=== PATIENT | male | born 1955 | race Caucasian/White ===

== ENCOUNTER 2017-02-14 20:32 | Inpatient (IN) | payer MEDICARE, OTHER ==
[2017-02-14 21:09] LABS: % EOSINOPHILS 1.9 % (0.0-5.0); % LYMPHOCYTES 30.6 % (20.0-50.0); % NEUTROPHILS 60.5 % (40.0-80.0); EOSINOPHILE ABSOLUTE 0.2 Th/cmm (0.1-0.4); HEMATOCRIT 41.2 % (41.0-60); HEMOGLOBIN 13.8 gm/dL (12-16); LYMPHOCYTE ABSOLUTE 3.1 Th/cmm (1.5-3.0); MEAN CELL VOLUME 95.4 fl (80-99); MEAN CORPUSCULAR HEMOGLOBIN 31.9 pg (26.0-30.0); MEAN CORPUSCULAR HGB CONC 33.4 pg (28.0-36.0); MEAN PLATELET VOLUME 7.5 fl; MONOCYTE ABSOLUTE 0.7 Th/cmm (0.3-1.0); NEUTROPHILE ABSOLUTE 6.2 Th/cmm (1.8-8.0); PLATELET COUNT 343 Th/cmm (150-400); RED BLOOD COUNT 4.32 Mil/cmm (4.30-5.70); RED CELL DISTRIBUTION WIDTH 13.5 % (11.5-20.0); WHITE BLOOD COUNT 10.2 Th/cmm (4.8-10.8)
[2017-02-14 21:27] LABS: ALB/GLOB RATIO 1.6 (1.0-1.8); ALBUMIN 4.1 gm/dL (4.2-5.5); ALKALINE PHOSPHATASE 95 U/L (34-104); ANION GAP 5.9 (7.0-16.0); BILIRUBIN,TOTAL 0.5 mg/dL (0.3-1.0); BUN - UREA NITROGEN 19 mg/dL (7-25); CALCIUM SERUM 9.4 mg/dL (8.6-10.3); CARBON DIOXIDE 30.6 mEq/L (21.0-31.0); CHLORIDE 103 mEq/L (98-107); CREATININE - SERUM 0.9 mg/dL (0.7-1.3); GFR AFRICAN-AMERICAN > 60.0 ml/min (>90); GFR NON AFRICAN-AMERICAN > 60.0 ml/min; GLUCOSE 92 mg/dL (70-105); POTASSIUM SERUM 3.5 mEq/L (3.5-5.1); SGOT 17 U/L (13-39); SGPT/ALT 16 U/L (7-52); SODIUM SERUM 136 mEq/L (136-145); TOTAL PROTEIN,SERUM 6.7 gm/dL (6.0-8.3)
--- NOTE | 2017-02-14 21:55 | ED Physician Chart ---
ED Chief Complaint/HPI - Patient Information Date Seen:: 02/14/17 Time Seen:: 21:49 Chief Complaint:: Increased confusion History of Present Illness:: 61 yo male who was a resident at [facility] [place], was brought to the ER for evaluation of increased confusion and uncontrolled behavior. The patient has history of schizoaffective disorder, bipolar type. Allergies:: Allergies Allergy/AdvReac Type Severity Reaction Status Date / Time No Known Allergies Allergy Verified 02/14/17 21:00 Vitals:: Vital Signs - 8 hr 02/14/17 20:40 Temp 97.9 F HR 75 RR 18 BP 131/82 O2 Sat % 98 ED Review of Systems - Review of Systems General/Constitutional: No fever, No chills Skin: Skin lesions Head: No headache Eyes: No loss of vision ENT: No nasal drainage Neck: No neck pain Cardio Vascular: No chest pain Pulmonary: No SOB GI: No nausea, No vomiting Musculoskeletal: No bone or joint pain Neurological: No syncope, Weakness ED Past Medical History - Past Medical History Past Medical History: HTN, Dyslipidemia, Dementia, Other (seborrheic dermatitis , myopia, presbyopia, abnormal gait) Social History: Non Smoker, No Alcohol, No Drug Use Psychiatricy History: Dementia, Other (Schizoaffective disorde, bipolar type) Family Medical History - Family Member Mother History Unknown: Yes ED Physical Exam - Physical Examination General/Constitutional: Awake, Alert Other Gen/Cons comments:: Oriented to self and hospital Head: Atraumatic Eyes: PERRL, EOMI Other Skin comments:: Seborrheic lesions ENMT: Nasal exam nl Neck: No nuchal rigidity Respiratory: Clear to Auscultation, No Wheeze/Rhonchi/Rales Cardio Vascular: RRR, No murmur, gallop, rubs, NL S1 S2 GI: No tenderness/rebounding/guarding Extremities: Full ROM Other Extremities comments:: unsteady gait Neuro/Psych: Normal motor strength ED Labs/Radiology/EKG Results - Lab Results Results: Laboratory Tests 02/14/17 02/14/17 21:02 21:02 WBC 10.2 RBC 4.32 Hgb 13.8 Hct 41.2 MCV 95.4 MCH 31.9 H MCHC Differential 33.4 RDW 13.5 Plt Count 343 MPV 7.5 Neutrophils % 60.5 Lymphocytes % 30.6 Monocytes % 7.0 Eosinophils % 1.9 Basophils % 0.0 Sodium 136 Potassium 3.5 Chloride 103 Carbon Dioxide 30.6 Anion Gap 5.9 L BUN 19 Creatinine 0.9 Est GFR ( Amer) > 60.0 Est GFR (Non-Af Amer) > 60.0 BUN/Creatinine Ratio 21.1 Glucose 92 Calcium 9.4 Total Bilirubin 0.5 AST 17 ALT 16 Alkaline Phosphatase 95 Total Protein 6.7 Albumin 4.1 L Globulin 2.6 Albumin/Globulin Ratio 1.6 - Radiology Results Results: CXR: unremarkable ED Assessment - Assessment General Assessment: Schizoaffective disorder, bipolar type with increased confusion and agitation. Hypertension. Bradycardia Critical Care Time: 30 min Excludes all billable procedures: Yes This condition life threatening/high prob of deterioration: No Assessment/Comments:: CBC, CMP, TSH, A1c UA, urine drug screen EKG Admit to inpatient med surg for further evaluation. ED Septic Shock - . Is Septic Shock (SBP<90, OR Lactate>4 mmol\L) present?: No - <6hrs of presentation: Vital Signs: Vital Signs - 8 hr 02/14/17 20:40 Temp 97.9 F HR 75 RR 18 BP 131/82 O2 Sat % 98 ED Reassessment (Disposition) - Reassessment Reassessment Condition:: Unchanged - Patient Disposition Discharge/Transfer:: Acute Care w/in this hosp Admitting Medical Physician:: Obey Guerra
[2017-02-14] MEDS ORDERED: NITROGLYCERIN OINT 2% 1 INCH PACKET TP SCH ×2 (22:45)
[2017-02-15 00:26] VITALS: BP 110/77
[2017-02-15 06:21] LABS: % BASOPHILS 0.2 % (0.0-2.0); % EOSINOPHILS 1.6 % (0.0-5.0); % LYMPHOCYTES 26.2 % (20.0-50.0); % MONOCYTES 8.3 % (2.0-10.0); % NEUTROPHILS 63.7 % (40.0-80.0); EOSINOPHILE ABSOLUTE 0.2 Th/cmm (0.1-0.4); HEMATOCRIT 39.3 % (41.0-60); HEMOGLOBIN 13.3 gm/dL (12-16); LYMPHOCYTE ABSOLUTE 2.9 Th/cmm (1.5-3.0); MEAN CORPUSCULAR HEMOGLOBIN 31.9 pg (26.0-30.0); MEAN PLATELET VOLUME 7.9 fl; MONOCYTE ABSOLUTE 0.9 Th/cmm (0.3-1.0); NEUTROPHILE ABSOLUTE 6.9 Th/cmm (1.8-8.0); PLATELET COUNT 315 Th/cmm (150-400); RED BLOOD COUNT 4.18 Mil/cmm (4.30-5.70); RED CELL DISTRIBUTION WIDTH 13.7 % (11.5-20.0); WHITE BLOOD COUNT 10.9 Th/cmm (4.8-10.8)
[2017-02-15 06:43] LABS: ALB/GLOB RATIO 1.6 (1.0-1.8); ALBUMIN 3.9 gm/dL (4.2-5.5); ALKALINE PHOSPHATASE 93 U/L (34-104); ANION GAP 9.5 (7.0-16.0); BILIRUBIN,TOTAL 0.3 mg/dL (0.3-1.0); BUN - UREA NITROGEN 23 mg/dL (7-25); CALCIUM SERUM 9.3 mg/dL (8.6-10.3); CARBON DIOXIDE 26.1 mEq/L (21.0-31.0); CHLORIDE 109 mEq/L (98-107); GFR AFRICAN-AMERICAN > 60.0 ml/min (>90); GFR NON AFRICAN-AMERICAN > 60.0 ml/min; GLUCOSE 113 mg/dL (70-105); POTASSIUM SERUM 3.6 mEq/L (3.5-5.1); SGOT 17 U/L (13-39); SGPT/ALT 15 U/L (7-52); SODIUM SERUM 141 mEq/L (136-145); TOTAL PROTEIN,SERUM 6.3 gm/dL (6.0-8.3)
--- NOTE | 2017-02-15 07:11 | Diagnostic Imaging Report ---
Portable chest x-ray Time: 2105 hours History: Pain Allowing for portable technique the heart size is normal. No focal pulmonary parenchymal processes. No hilar or mediastinal abnormalities. Old healed fractures of left rib cage appreciated. Impression: No acute abnormalities.
[2017-02-15] MEDS ORDERED: Atorvastatin Calcium 10 MG TAB PO SCH ×2 (09:00)
[2017-02-15] MEDS ORDERED: [UNRECOGNIZED DRUG - OTHER] TP SCH ×2 (09:00)
[2017-02-15] MEDS ORDERED: FLUOCINOLONE TP SCH ×2 (09:00)
[2017-02-15 16:03] LABS: URINE MICROSCOPIC INDICATED? YES; URINE SOURCE CATH
[2017-02-15 16:10] LABS: URINE BILIRUBIN NEGATIVE (NEGATIVE); URINE BLOOD SMALL (NEGATIVE); URINE GLUCOSE (UA) NEGATIVE (NEGATIVE); URINE KETONE NEGATIVE (NEGATIVE); URINE LEUKOCYTE ESTERASE NEGATIVE (NEGATIVE); URINE NITRATE NEGATIVE (NEGATIVE); URINE PROTEIN NEGATIVE (NEGATIVE); URINE UROBILINOGEN 0.2 E.U./dL (0.2 - 1.0)
[2017-02-15 16:16] LABS: URINE CLARITY CLEAR (CLEAR); URINE COLOR YELLOW
[2017-02-15 16:17] LABS: URINE BACTERIA NONE SEEN /hpf (NONE SEEN); URINE EPITHELIAL CELLS NONE SEEN /lpf (FEW); URINE WBC 0-2 /hpf (0-5)
[2017-02-15 16:43] LABS: AMPHETAMINE URINE NEGATIVE (NEGATIVE); BARBITURATES URINE NEGATIVE (NEGATIVE); BENZODIAZEPINES QUAL URINE NEGATIVE (NEGATIVE); CANNABINOID THC NEGATIVE (NEGATIVE); COCAINE METABOLITE QUAL URINE NEGATIVE (NEGATIVE); METHADONE URINE NEGATIVE (NEGATIVE); METHAMPHETAMINES QUAL URINE NEGATIVE (NEGATIVE); OPIATES (MORPHINE) QUAL. URINE NEGATIVE (NEGATIVE); PHENCYCLIDINE (PCP) URINE NEGATIVE (NEGATIVE); TRICYCLICS (TCA) QUAL. URINE NEGATIVE (NEGATIVE)
--- NOTE | 2017-02-16 07:01 | History & Physical ---
History physical and discharge summary ADMIT DATE: 02/15/2017 HISTORY OF PRESENT ILLNESS: This 61-year-old male was brought to the Emergency Room with complaint of confusion, agitation, and the patient has a history of psychosis, blood pressure was high also, complaining of chest discomfort. The patient was admitted to telemetry and psych evaluation was done. PAST MEDICAL HISTORY: Hypertension, hyperlipidemia, and dementia. SOCIAL HISTORY: Nonsmoker. FAMILY HISTORY: Negative. REVIEW OF SYSTEMS: A 14-point review of systems is negative except above. PHYSICAL EXAMINATION: GENERAL: The patient is very angry with the following vital signs. VITAL SIGNS: Temperature 97.9, pulse 75, respirations 18, blood pressure 131/82. HEENT: Mild pallor, no icterus or plaque. NECK: Supple. LUNGS: Breath sounds, bilateral vesicular. CARDIOVASCULAR: S1, S2. ABDOMEN: Soft, bowel sounds present. LYMPHATICS: No thyromegaly, no cervical lymph nodes. LABORATORY DATA: UA shows small blood, 2-5 RBC and urine toxicology negative. Chemistry shows creatinine of 1. White count is 10,000, hemoglobin 13 grams, platelets are 315. DIAGNOSIS: Angina. PLAN: Check troponin. Cardiology evaluation. Restart home medications including Lipitor, Nitro-Bid, and Zyprexa. The patient has been accepted to [facility], transferred under service of primary physician, Dr. Greg Coulter. JOB# [id number] DELPHINE
--- NOTE | 2017-02-16 17:21 | History & Physical ---
ADMIT DATE: 02/15/2017 INTERNAL MEDICINE CONSULTATION HISTORY OF PRESENT ILLNESS: The patient is a patient of mine, being transferred from medical floor. Medical problems include hyperlipidemia, coronary artery disease, peptic ulcer disease, gastritis, arthritis, and osteoporosis. SOCIAL HISTORY: No prior history of smoking or alcohol abuse. FAMILY HISTORY: Not available. REVIEW OF SYSTEMS: Very confused. Walking all the time. No nausea. No vomiting. No diarrhea. No melena. No hematochezia. PHYSICAL EXAMINATION: GENERAL: Average male in no obvious respiratory distress. VITAL SIGNS: Include a blood pressure 140/80, heart rate 80, and respiratory rate of 18. SKIN: Show no obvious cellulitis. HEENT: Normal conjunctivae. NECK: Supple. LUNGS: Clear. HEART: S1, S2 present. ABDOMEN: Soft. Minimal epigastric tenderness. Bowel sounds appeared good. EXTREMITIES: Show arthritis. NEUROLOGIC: The patient with dementia. MEDICAL DIAGNOSES: Include hyperlipidemia, coronary artery disease, peptic ulcer disease, gastritis, arthritis, and osteoporosis. CURRENT MEDICINES: Include Lipitor 10 mg daily and nitroglycerin p.r.n. Rest of medicines as per psychiatrist. JOB# [id number]
== END 2017-02-15 19:00 | DRG 303 ==
LOC: ER 20:32 → TELE 22:40 → OBSVTOIN 02-15 12:17
PROVIDERS: ADMIT Internal Medicine Infectious Disease; ATTEND Internal Medicine Infectious Disease
DX: I25.119 Atherosclerotic heart disease of native coronary artery with unspecified angina pectoris (principal); F25.0 Schizoaffective disorder, bipolar type; F03.90 Unspecified dementia, unspecified severity, without behavioral disturbance, psychotic disturbance, mood disturbance, and anxiety; K29.70 Gastritis, unspecified, without bleeding; I10 Essential (primary) hypertension; E78.5 Hyperlipidemia, unspecified; R00.1 Bradycardia, unspecified; K27.9 Peptic ulcer, site unspecified, unspecified as acute or chronic, without hemorrhage or perforation; M19.90 Unspecified osteoarthritis, unspecified site; M81.0 Age-related osteoporosis without current pathological fracture
CPT/HCPCS: 36415-UA; 71010-TC; 80053-TC; 80307; 81001-TC; 84443-TC; 84484-TC; 85025-TC; 87086-90; 93005; G0378; Z7502

== ENCOUNTER 2017-02-15 19:04 | Inpatient (IN) | payer MEDICARE, OTHER ==
[2017-02-15 20:12] VITALS: BP 130/64
[2017-02-15] MEDS ORDERED: Magnesium Hydroxide (MOM) 30 mL UDC PO PRN (20:20)
--- NOTE | 2017-02-15 20:56 | Psychosocial Evaluation ---
DATE OF SERVICE: 02/15/2017 REQUESTING PHYSICIAN: Dr. Thomas Guerra. REASON FOR CONSULTATION: Agitated behavior. HISTORY OF PRESENT ILLNESS: This patient is a 61-year-old male admitted from [facility] in view of his aggressive behavior and psychosis. CHIEF COMPLAINT: "I do not know." HISTORY OF PRESENT ILLNESS: This is the first psychiatric hospitalization for this patient at [facility] who is reported to have been out of control at the shelter facility. The patient is being maintained with 20 mg of Zyprexa. Even then, the patient could not be ____. The patient has been screaming and yelling. I tried to interview the patient, but the patient has been getting out of control and the patient has been ordered Haldol 5 mg on a p.r.n. basis for his acute agitation and the patient has not been cooperative at this time. The patient's insight and judgment at this time are very much impaired. Impulse control seems to be poor. PAST PSYCHIATRIC HISTORY: Details are not known. MEDICAL HISTORY: Physical examination is done by Dr. Thomas Guerra. SUBSTANCE ABUSE HISTORY: None. PHYSICAL OR SEXUAL ABUSE HISTORY: None. LEGAL PROBLEMS: None at this time. STRENGTHS AND ASSETS: The patient seems to be poorly motivated. MENTAL EXAMINATION: The patient is a 61-year-old, looking his stated age, superficially cooperative. Eye contact is poor. Mood is noted to be irritable. Affect is constricted. Insight and judgment are noted to be still impaired. Impulse control seems to be poor. Coping skills are also noted to be very poor. The patient has been having difficult time to cope with the stress. The patient is going to be maintained on Ativan and add Haldol on a p.r.n. basis and the patient is going to be closely monitored. The patient is going to be closely monitored. Once stabilized, the patient is going to be discharged. DIAGNOSTIC IMPRESSION: AXIS I: a. Psychosis, not otherwise specified. b. Schizophrenia, chronic, paranoid type. PLAN: To closely monitor the patient with these interventions and transfer the patient to Geropsychiatric Unit when he is medically cleared. JOB# [id number]
[2017-02-15] MEDS ORDERED: Triamcinolone Acetonide 0.1% Cream 15 gm TP SCH (21:00)
[2017-02-15] MEDS: NITROGLYCERIN OINT 2% 1 INCH PACKET TP SCH (21:38)
[2017-02-16] MEDS: NITROGLYCERIN OINT 2% 1 INCH PACKET TP SCH ×3 (05:03→20:53)
[2017-02-16] MEDS ORDERED: KETOCONAZOLE 2% 120 ML SHAMP TP SCH (09:00)
[2017-02-16] MEDS ORDERED: [UNRECOGNIZED DRUG - OTHER] TP SCH (09:00)
[2017-02-16] MEDS ORDERED: FLUOCINOLONE TP SCH (09:00)
[2017-02-16] MEDS: Atorvastatin Calcium 10 MG TAB PO SCH (09:02)
--- NOTE | 2017-02-16 23:22 | Progress Notes ---
DATE: 02/16/2017 IDENTIFYING DATA: The patient is a 61-year-old male, resident of a snf facility. Information obtained by directly interviewing the patient as well as reviewing the admission papers and they are reliable. JUSTIFICATION FOR HOSPITALIZATION: The patient is admitted here on a voluntary basis in view of his acute psychosis. CHIEF COMPLAINT: "I don't know." HISTORY OF PRESENT ILLNESS: This is the first psychiatric hospitalization to [facility]. The patient has been pacing most of the time on the unit and has been getting easily agitated and the patient has to be kept on almost 1:1 observation. Yesterday, the patient has been medicated with Zyprexa. The patient is actively responding to internal stimuli and is not able to provide much of information. PAST PSYCHIATRIC HISTORY: Details are not known. MEDICAL HISTORY: Physical examination is requested to be done by Dr. Coulter. SUBSTANCE ABUSE HISTORY: None. PHYSICAL OR SEXUAL ABUSE HISTORY: None. LEGAL PROBLEMS: None at this time. STRENGTH AND ASSETS: The patient is motivated. MENTAL STATUS EXAMINATION: The patient is a 61-year-old male, looking his stated age, cooperative. The patient has been little bit drowsy with the medication that was given. Insight and judgment at this time are noted to be still impaired. Impulse control, however, seems to be fair today. No side effects to medications are noted. The patient has paranoid delusions. The patient is pacing on the unit most of the time. The patient has no insight into his illness. The patient is alert and oriented x 3. DIAGNOSTIC IMPRESSION: AXIS I: Schizophrenia, chronic paranoid type. AXIS II: None. AXIS III: As per Dr. Coulter. IMMEDIATE TREATMENT PLAN: The patient is going to be observed on the inpatient unit, provided with supportive psychotherapy. The patient is going to be closely monitored. Once stabilized, the patient is going to be discharged to self and will be followed up on an outpatient basis. ESTIMATED LENGTH OF STAY: 5-7 days. DISCHARGE CRITERIA: When he no longer a threat to self or others and be able to cope up with the stress. JOB# [id number]
[2017-02-17] MEDS: NITROGLYCERIN OINT 2% 1 INCH PACKET TP SCH ×3 (04:09→20:44)
[2017-02-17] MEDS: Atorvastatin Calcium 10 MG TAB PO SCH (08:51)
[2017-02-18] MEDS: NITROGLYCERIN OINT 2% 1 INCH PACKET TP SCH ×3 (04:16→20:18)
[2017-02-18] MEDS: Atorvastatin Calcium 10 MG TAB PO SCH (09:13)
--- NOTE | 2017-02-18 10:12 | Progress Notes ---
DATE: 02/17/2017 SUBJECTIVE: Staff was spoken to. The patient is interviewed. The patient is screaming and yelling and has been placed ____. He still tries to get out of the bed. The patient has no insight into his illness. The patient is screaming at the top of his lung. The patient is reported to have been given a dose of Haldol earlier, but it is not containing him. Hence the patient is going to be given a dose of Ativan 1 mg IM. The patient is currently on olanzapine 20 mg at bedtime. In view of his acute mood swings, the patient is going to be placed on the oxcarbazepine 150 mg twice a day and the patient will be followed up with supportive therapy. ASSESSMENT: The patient is grossly psychotic. PLAN: To continue the patient with supportive therapy and followup. JOB# [id number]
--- NOTE | 2017-02-19 01:55 | Progress Notes ---
DATE: 02/18/2017 SUBJECTIVE: Staff was spoken to. The patient is interviewed. Mood is noted to be irritable. Affect is constricted. The patient has been getting easily agitated and has been trying to get out of the wheelchair. The patient has been very impulsive. The patient has been placed on the oxcarbazepine 150 mg twice a day yesterday and is not doing well. The patient is screaming and yelling at the top of his lungs and hence the valproic acid has been added 250 mg twice a day and the patient is also on Haldol 5 mg b.i.d. p.r.n. Even with all the medications, the patient has been having difficult time. ASSESSMENT: The patient is still grossly psychotic and impulsive. PLAN: To continue the patient with the above medications. I encouraged the patient to verbalize the concerns rather than to act out. The patient is not ready to be discharged to a lower level of care yet. JOB# [id number]
[2017-02-19] MEDS: NITROGLYCERIN OINT 2% 1 INCH PACKET TP SCH ×3 (03:58→20:15)
[2017-02-19] MEDS: Atorvastatin Calcium 10 MG TAB PO SCH (09:09)
--- NOTE | 2017-02-19 23:47 | Progress Notes ---
DATE: 02/19/2017 SUBJECTIVE: Staff was spoken to. The patient is interviewed. Mood is noted to be irritable. Affect is constricted. The patient has been in the wheelchair and has been screaming and yelling and trying to get out of the wheelchair. The patient has no insight into his illness continues to be very paranoid. The patient is not making much sense. PLAN: The patient has been currently maintained on Zyprexa, Depakote and Trileptal. Even with these medications, the patient has been having difficult time to comply with the treatment. JOB# [id number]
[2017-02-20] MEDS: NITROGLYCERIN OINT 2% 1 INCH PACKET TP SCH ×3 (04:45→20:30)
[2017-02-20] MEDS: Atorvastatin Calcium 10 MG TAB PO SCH (09:04)
--- NOTE | 2017-02-20 20:57 | Progress Notes ---
DATE: 02/20/2017 Staff was spoken to. The patient is interviewed. Mood is noted to be irritable. Affect is constricted. Insight and judgment are noted to be still impaired. The patient is currently on olanzapine 20 mg at bedtime. Oxcarbazepine is given 150 mg twice a day and valproic acid 250 mg twice a day. Even with these medications, the patient has been getting easily agitated, trying to get out of the wheelchair. The patient has no insight into his illness. The patient is going to be placed on a higher dose on the Trileptal and encouraged to participate in groups and ____ rather than to act out. JOB# [id number]
[2017-02-21] MEDS: Atorvastatin Calcium 10 MG TAB PO SCH (08:24)
[2017-02-21] MEDS: NITROGLYCERIN OINT 2% 1 INCH PACKET TP SCH ×2 (12:09→20:52)
--- NOTE | 2017-02-21 20:37 | Progress Notes ---
DATE: 02/21/2017 SUBJECTIVE: Staff was spoken to. The patient is interviewed. Mood is irritable. Affect is constricted. The patient is still on the valproic acid, oxcarbazepine and olanzapine. Still he is testing the limits. No side effects to the medications are noted. The patient is very disruptive and has to be redirected. No side effects to the medications are noted at this time. ASSESSMENT: The patient is still psychotic and impulsive. PLAN: To continue the patient with the supportive therapy. I encouraged the patient to verbalize the concerns rather than to act out. JOB# [id number]
[2017-02-22] MEDS: NITROGLYCERIN OINT 2% 1 INCH PACKET TP SCH ×4 (04:00→21:25)
--- NOTE | 2017-02-22 09:52 | Progress Notes ---
DATE: 02/22/2017 PSYCHIATRIC PROGRESS NOTE SUBJECTIVE: Staff was spoken to. The patient is interviewed. Mood is noted to be irritable. Affect is constricted. The patient is reported to have been screaming and yelling last night and the patient has to be given a dose of Ativan to calm him down. The patient's mood swings are still a concern. The patient is trying to get out of the ____ and the patient is a high fall risk. ASSESSMENT: The patient is still having mood swings. PLAN: To continue the patient with the supportive therapy. I encouraged the patient to verbalize the concerns. The patient is going to be closely monitored and the Depakote is going to be increased to 500 mg twice a day and the patient is going to be followed up. JOB# [id number]
[2017-02-22] MEDS: Atorvastatin Calcium 10 MG TAB PO SCH (11:08)
[2017-02-23] MEDS: NITROGLYCERIN OINT 2% 1 INCH PACKET TP SCH ×2 (05:07→11:38)
[2017-02-23] MEDS: Atorvastatin Calcium 10 MG TAB PO SCH ×3 (08:33→09:18)
--- NOTE | 2017-02-23 20:03 | Progress Notes ---
DATE: 02/23/2017 SUBJECTIVE: Staff was spoken to. The patient is interviewed. Mood is noted to be irritable. Affect is constricted. The patient is still having difficult time to cope with the stress. The patient's insight and judgment at this time are noted to be still limited. The patient has been requested to have the blood work for the Depakote level and it is still pending. ASSESSMENT: The patient is still psychotic, tends to scream and yell. PLAN: To continue the patient with the supportive therapy. I encouraged the patient to verbalize the concerns rather than to act out. JOB# [id number]
== END 2017-02-23 15:15 | DRG 885 ==
LOC: GERO 19:04
PROVIDERS: ADMIT Psychiatry & Neurology Psychiatry; ATTEND Psychiatry & Neurology Psychiatry
DX: F20.0 Paranoid schizophrenia (principal); F29 Unspecified psychosis not due to a substance or known physiological condition; E78.5 Hyperlipidemia, unspecified; I25.10 Atherosclerotic heart disease of native coronary artery without angina pectoris; K29.70 Gastritis, unspecified, without bleeding; M19.90 Unspecified osteoarthritis, unspecified site; M81.0 Age-related osteoporosis without current pathological fracture
CPT/HCPCS: J2060; J7051; Z7610

== ENCOUNTER 2017-11-15 17:32 | Inpatient (IN) | payer MEDICARE, OTHER ==
--- NOTE | 2017-11-15 17:39 | ED Physician Chart ---
ED Chief Complaint/HPI - Patient Information Date Seen:: 11/15/17 Time Seen:: 17:25 Chief Complaint:: Agitation History of Present Illness:: onset x 3 days of agitation and confusion; no report of trauma, SIs, H/As, neck pain, C/P, SOB, Abd. Pain, A/N/V/D/C, fever, chills, or urinary s/s Allergies:: Allergies Allergy/AdvReac Type Severity Reaction Status Date / Time No Known Allergies Allergy Verified 02/14/17 21:00 Historian:: Patient, EMS Review:: Nurse's Note Reviewed, Old Chart Reviewed, EMS run form Reviewed ED Review of Systems - Review of Systems General/Constitutional: No fever, No chills, No weight loss, No weakness, No diaphoresis, No edema, No loss of appetite Skin: No skin lesions, No rash, No bruising Head: No headache, No light-headedness Eyes: No loss of vision, No pain, No diplopia ENT: No earache, No nasal drainage, No sore throat, No tinnitus Neck: No neck pain, No swelling, No thyromegaly, No stiffness, No mass noted Cardio Vascular: No chest pain, No palpitations, No PND, No orthopnea, No edema Pulmonary: No SOB, No cough, No sputum, No wheezing GI: No nausea, No vomiting, No diarrhea, No pain, No melena, No hematochezia, No constipation, No hematemesis G/U: No dysuria, No frequency, No hematuria, No nacturia Musculoskeletal: No bone or joint pain, No back pain, No muscle pain Endocrine: No polyuria, No polydipsia Psychiatric: Prior psych history, Depression, Anxiety, No suicidal ideation, No homicidal ideation, No auditory hallucination, No visual hallucination Hematopoietic: No bruising, No lymphadenopathy Allergic/Immuno: No urticaria, No angioedema Neurological: No syncope, No focal symptoms, No weakness, No paresthesia, No headache, No seizure, No dizziness, Confusion, No vertigo ED Past Medical History - Past Medical History Obtainable: Yes Past Medical History: HTN, Dyslipidemia, Dementia Family History: HTN Social History: Non Smoker, No Alcohol, No Drug Use, Single, Care Facility Surgical History: None Psychiatricy History: Depression, Schizophrenia, Bipolar, Dementia Medication: Reviewed Family Medical History - Family Member Mother History Unknown: Yes ED Physical Exam - Physical Examination General/Constitutional: Awake, Well-developed, well-nourished, Alert, No distress, GCS 15, Non-toxic appearing, Ambulatory Head: Atraumatic Eyes: Lids, conjuctiva normal, PERRL, EOMI Skin: Nl inspection, No rash, No skin lesions, No ecchymosis, Well hydrated, No lymphadenopathy ENMT: External ears, nose nl, TM canals nl, Nasal exam nl, Lips, teeth, gums nl , Oropharynx nl, Tonsils nl Neck: Nontender, Full ROM w/o pain, No JVD, No nuchal rigidity, No bruit, No mass, No stridor Respiratory: Nl effort/Exclusion, Clear to Auscultation, No Wheeze/Rhonchi/Rales Cardio Vascular: RRR, No murmur, gallop, rubs, NL S1 S2, Carotid/Femoral/Distal pulses equal bilaterally GI: No tenderness/rebounding/guarding, No organomegaly, No hernia, Normal BS's, Nondistended, No mass/bruits, No McBurney tenderness : No CVA tenderness Extremities: No tenderness or effusion, Full ROM, normal strength in all extremities, No edema, Normal digits & nails Neuro/Psych: Alert/oriented, DTR's symmetric, Normal sensory exam, Normal motor strength, Judgement/insight normal, Mood normal, Normal gait, No focal deficits Other Neuro/Psych comments:: + Psychomotor Agitation; no SIs; Mood/Affect: Labile; Confused and Disoriented Misc: Normal back, No paraspinal tenderness ED Labs/Radiology/EKG Results - Lab Results Comments:: Reviewed - EKG Interpretations EKG Time:: 17:44 Rate & Rhythm: 79; NSR Comments:: non-specific st-t changes ED Septic Shock - . Is Septic Shock (SBP<90, OR Lactate>4 mmol\L) present?: No ED Reassessment (Disposition) - Reassessment Reassessment Condition:: Improved - Diagnosis Diagnosis:: Dx: Agitation; Psychosis; Medical Clearance; Dementia; Schizo-Affective Disorder ; Bipolar Disorder - Aftercare/Follow up Instructions Aftercare/Follow-Up Instructions:: Counseled pt regarding lab results/diagnosis & need follow up, Counseled pt & family regarding lab results/diagnosis & need follow up - Patient Disposition Discharge/Transfer:: Acute Care w/in this hosp Admitted to:: [facility] Condition at Disposition:: Stable, Improved
[2017-11-15 17:48] LABS: % BASOPHILS 0.5 % (0.0-2.0); % EOSINOPHILS 1.3 % (0.0-5.0); % LYMPHOCYTES 27.4 % (20.0-50.0); % MONOCYTES 8.5 % (2.0-10.0); % NEUTROPHILS 62.3 % (40.0-80.0); BASOPHILE ABSOLUTE 0.1 Th/cumm (0-0.2); EOSINOPHILE ABSOLUTE 0.2 Th/cmm (0.1-0.4); LYMPHOCYTE ABSOLUTE 3.3 Th/cmm (1.5-3.0); MEAN CELL VOLUME 93.8 fl (80-99); MEAN CORPUSCULAR HEMOGLOBIN 31.2 pg (26.0-30.0); MEAN CORPUSCULAR HGB CONC 33.3 pg (28.0-36.0); MEAN PLATELET VOLUME 7.8 fl; NEUTROPHILE ABSOLUTE 7.3 Th/cmm (1.8-8.0); PLATELET COUNT 392 Th/cmm (150-400); RED CELL DISTRIBUTION WIDTH 13.7 % (11.5-20.0); WHITE BLOOD COUNT 11.9 Th/cmm (4.8-10.8)
[2017-11-15 18:05] LABS: ACETAMINOPHEN < 10.0 ug/mL (10.0-30.0); ALB/GLOB RATIO 1.5 (1.0-1.8); ALBUMIN 4.1 gm/dL (4.2-5.5); ALKALINE PHOSPHATASE 47 U/L (34-104); ANION GAP 13.2 (7.0-16.0); BILIRUBIN,TOTAL 0.4 mg/dL (0.3-1.0); BUN - UREA NITROGEN 19 mg/dL (7-25); CALCIUM SERUM 9.1 mg/dL (8.6-10.3); CARBON DIOXIDE 23.9 mEq/L (21.0-31.0); CHLORIDE 105 mEq/L (98-107); CHOLESTEROL 171 mg/dL (<200); CREATININE - SERUM 1.1 mg/dL (0.7-1.3); GFR AFRICAN-AMERICAN > 60.0 ml/min (>90); GFR NON AFRICAN-AMERICAN > 60.0 ml/min; GLUCOSE 122 mg/dL (70-105); HDL -HIGH DENSITY LIPOPROTEIN 40 mg/dL (23-92); POTASSIUM SERUM 4.1 mEq/L (3.5-5.1); SALICYLATES (ASPIRIN) < 25.0 mg/L (30.0-100.0); SGOT 14 U/L (13-39); SGPT/ALT 16 U/L (7-52); SODIUM SERUM 138 mEq/L (136-145); TOTAL PROTEIN,SERUM 6.9 gm/dL (6.0-8.3); TRIGLYCERIDES 182 mg/dL (<150)
[2017-11-15 18:28] LABS: URINE SOURCE CLEAN C
[2017-11-15 18:33] LABS: URINE BILIRUBIN NEGATIVE (NEGATIVE); URINE BLOOD SMALL (NEGATIVE); URINE GLUCOSE (UA) NEGATIVE (NEGATIVE); URINE KETONE NEGATIVE (NEGATIVE); URINE LEUKOCYTE ESTERASE NEGATIVE (NEGATIVE); URINE MICROSCOPIC INDICATED? YES; URINE NITRATE NEGATIVE (NEGATIVE); URINE PROTEIN NEGATIVE (NEGATIVE); URINE UROBILINOGEN 0.2 E.U./dL (0.2 - 1.0)
[2017-11-15 18:35] LABS: URINE CLARITY CLEAR (CLEAR); URINE COLOR YELLOW
[2017-11-15 18:37] LABS: URINE BACTERIA FEW /hpf (NONE SEEN); URINE EPITHELIAL CELLS FEW /lpf (FEW); URINE WBC 0-2 /hpf (0-5)
[2017-11-15 18:50] LABS: AMPHETAMINE URINE NEGATIVE (NEGATIVE); BARBITURATES URINE NEGATIVE (NEGATIVE); BENZODIAZEPINES QUAL URINE NEGATIVE (NEGATIVE); CANNABINOID THC NEGATIVE (NEGATIVE); COCAINE METABOLITE QUAL URINE NEGATIVE (NEGATIVE); METHADONE URINE NEGATIVE (NEGATIVE); METHAMPHETAMINES QUAL URINE NEGATIVE (NEGATIVE); OPIATES (MORPHINE) QUAL. URINE NEGATIVE (NEGATIVE); PHENCYCLIDINE (PCP) URINE NEGATIVE (NEGATIVE); TRICYCLICS (TCA) QUAL. URINE NEGATIVE (NEGATIVE)
[2017-11-15 18:54] LABS: A1C % 6.2 % (4.0-6.0)
[2017-11-15 20:46] VITALS: BP 118/74
[2017-11-15] MEDS ORDERED: Magnesium Hydroxide (MOM) 30 mL UDC PO PRN ×2 (20:56→20:59)
[2017-11-15] MEDS ORDERED: Maalox 30 mL Cup PO PRN (20:56)
[2017-11-15] MEDS: Atorvastatin Calcium 10 MG TAB PO SCH (22:44)
[2017-11-16] MEDS ORDERED: Non-Formulary Item 1 EA (Valproic Acid [Depakene] 250 MG) PO SCH (09:00)
--- NOTE | 2017-11-16 19:49 | History and Physical ---
History of Present Illness - HPI Chief Complaint: Increased in agitation HPI: Patient has been agitated x 3 days, he was send to ER for Evaluation. 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: Dementia GI: Report: No Pertinent Hx Psych: Report: Schizophrenia Musculoskeletal: Report: No Pertinent Hx Rheumatologic: Report: No pertinent Hx Infectious Disease: Report: No Pertinent Hx Renal/: Report: No Pertinent Hx Endocrine: Report: No Pertinent Hx Dermatology: Report: No Pertinent Hx - Past Surgical History Past Surgical History: No pertinent Hx Family Medical History - Family Member Mother History Unknown: Yes Social History Smoke: No Alcohol: None Drugs: None Lives: Care Home Domestic Violence: Negative - Medications Home Medications: Home Medication Medication Instructions Recorded Type Acetaminophen 650 mg PO DAILY PRN 11/15/17 History Atorvastatin Calcium [Lipitor] 10 mg PO HS 11/15/17 History Clonazepam 0.5 mg PO BID PRN 11/15/17 History Magnesium Hydroxide [Milk of 30 ml PO DAILY PRN 11/15/17 History Magnesia] Olanzapine [Zyprexa Zydis] 10 mg PO HS 11/15/17 History Oxcarbazepine 300 mg PO BID 11/15/17 History Valproic Acid [Depakene] 250 mg PO DAILY 11/15/17 History Valproic Acid [Depakene] 500 mg PO HS 11/15/17 History - Allergies Allergies/Adverse Reactions: Allergies Allergy/AdvReac Type Severity Reaction Status Date / Time No Known Allergies Allergy Verified 11/15/17 17:44 Review of Systems - Review of Systems Constitutional: Report: No Significant Eyes: Report: No Significant ENT: Report: No Significant Respiratory: Report: No Significant Cardiovascular: Report: No Significant Gastrointestinal: Report: No Significant Genitourinary: Report: No Significant Musculoskeletal: Report: No Significant Skin: Report: No Significant Neurological: Report: Weakness Physical Exam - Physical Exam HEENT: Report: Ears Nose Throat within normal limits Neck: Report: Within normal limits Cardiovascular Systems: Report: Regular, Rate and Rhythm Respiratory: Report: Breath Sounds are within normal limits Abdomen: Report: Non-tender to palpation Back: Report: Inspection of back is within normal limits. Extremities: Report: Non-tender to palpation. Skin: Report: Warm, Dry Neuro/Psych: Report: Disoriented to name time or place, Depressed affect - Lab Results All Lab Results last 24 hours: Laboratory Results - last 24 hr 11/15/17 17:40 RPR NONREACTIVE - Assessment Assessment: Patient is awake, alert in no acute distress. Dx Increased in agitation, Dementia, schizophrenia, hyperlipidemia - Plan Plan: Patient is under psychiatric care. She is continue with SNF meds.
--- NOTE | 2017-11-16 20:17 | Psychiatric Evaluation ---
DATE OF SERVICE: 11/15/2017 IDENTIFYING DATA: The patient is a 61-year-old male, resident of [facility]. Information obtained by directly interviewing the patient as well as reviewing the admission papers and they are reliable. JUSTIFICATION FOR HOSPITALIZATION: The patient has been admitted over here for acute agitation and aggressive behaviors towards the staff. Chart is reviewed. The patient is interviewed: Staff was spoken to get an evaluation, the patient has been very isolative, withdrawn and very guarded and is not providing much of information stating that he does not know for most of the questions. Review of the chart indicated that the patient had been maintained on both the Trileptal as well as on the Depakote for his mood swings and the patient is also reported to have been on antihypertensive medications along with olanzapine at bedtime and the patient at this time is very guarded and suspicious. The patient's sleep and appetite prior to the hospitalization are reported to be poor. PAST PSYCHIATRIC HISTORY: Details are not known. MEDICAL HISTORY: Physical examination is requested to be done by Dr. Bhatia. SUBSTANCE ABUSE HISTORY: None. PHYSICAL OR SEXUAL ABUSE HISTORY: None. LEGAL PROBLEMS: None at this time. STRENGTH AND ASSETS: The patient is motivated. MENTAL STATUS EXAMINATION: The patient is a 61-year-old, looking his stated age, disheveled, superficially cooperative. Eye contact is poor. Mood is noted to be irritable. Affect is constricted. The patient has paranoid delusions, but denies any command hallucinations. Insight and judgment at this time are noted to be very much impaired. Impulse control is noted to be limited. The patient has been having difficult time to cope with the stress. The patient is paranoid, but denies any command hallucinations. The patient is reported to have been striking out at other residents and the staff. The patient could not be contained at a lower level of care. The patient is not suicidal. DIAGNOSTIC IMPRESSION: AXIS I: Schizoaffective disorder by history. AXIS II: None. AXIS III: As per Dr. Bhatia. IMMEDIATE TREATMENT PLAN: The patient is going to be observed on inpatient unit, provided with supportive psychotherapy. The patient is going to be closely monitored. Once stabilized, the patient is going to be discharged to [facility] for further followup. JOB# [id number]
[2017-11-16] MEDS: OLANZapine 10 mg Oral Disintegrating Tab PO SCH (20:45)
[2017-11-16] MEDS: Atorvastatin Calcium 10 MG TAB PO SCH (20:45)
--- NOTE | 2017-11-17 09:15 | General Progress Note ---
Subjective - Review of Systems Service Date: 11/17/17 Subjective: Patient is confused Objective - Results Result Diagrams: 11/15/17 17:40 11/15/17 17:40 Recent Labs: Laboratory Last Values WBC 11.9 Th/cmm (4.8-10.8) H 11/15/17 17:40 RBC 4.80 Mil/cmm (4.30-5.70) 11/15/17 17:40 Hgb 15.0 gm/dL (12-16) 11/15/17 17:40 Hct 45.0 % (41.0-60) 11/15/17 17:40 MCV 93.8 fl (80-99) 11/15/17 17:40 MCH 31.2 pg (26.0-30.0) H 11/15/17 17:40 MCHC Differential 33.3 pg (28.0-36.0) 11/15/17 17:40 RDW 13.7 % (11.5-20.0) 11/15/17 17:40 Plt Count 392 Th/cmm (150-400) 11/15/17 17:40 MPV 7.8 fl 11/15/17 17:40 Neutrophils % 62.3 % (40.0-80.0) 11/15/17 17:40 Lymphocytes % 27.4 % (20.0-50.0) 11/15/17 17:40 Monocytes % 8.5 % (2.0-10.0) 11/15/17 17:40 Eosinophils % 1.3 % (0.0-5.0) 11/15/17 17:40 Basophils % 0.5 % (0.0-2.0) 11/15/17 17:40 Sodium 138 mEq/L (136-145) 11/15/17 17:40 Potassium 4.1 mEq/L (3.5-5.1) 11/15/17 17:40 Chloride 105 mEq/L (98-107) 11/15/17 17:40 Carbon Dioxide 23.9 mEq/L (21.0-31.0) 11/15/17 17:40 Anion Gap 13.2 (7.0-16.0) 11/15/17 17:40 BUN 19 mg/dL (7-25) 11/15/17 17:40 Creatinine 1.1 mg/dL (0.7-1.3) 11/15/17 17:40 Est GFR ( Amer) > 60.0 ml/min (>90) 11/15/17 17:40 Est GFR (Non-Af Amer) > 60.0 ml/min 11/15/17 17:40 BUN/Creatinine Ratio 17.3 11/15/17 17:40 Glucose 122 mg/dL (70-105) H 11/15/17 17:40 Hemoglobin A1c % 6.2 % (4.0-6.0) H 11/15/17 17:40 Calcium 9.1 mg/dL (8.6-10.3) 11/15/17 17:40 Total Bilirubin 0.4 mg/dL (0.3-1.0) 11/15/17 17:40 AST 14 U/L (13-39) 11/15/17 17:40 ALT 16 U/L (7-52) 11/15/17 17:40 Alkaline Phosphatase 47 U/L (34-104) 11/15/17 17:40 Troponin I < 0.01 ng/mL (0.01-0.05) L 11/15/17 17:40 Total Protein 6.9 gm/dL (6.0-8.3) 11/15/17 17:40 Albumin 4.1 gm/dL (4.2-5.5) L 11/15/17 17:40 Globulin 2.8 gm/dL 11/15/17 17:40 Albumin/Globulin Ratio 1.5 (1.0-1.8) 11/15/17 17:40 Triglycerides 182 mg/dL (<150) H 11/15/17 17:40 Cholesterol 171 mg/dL (<200) 11/15/17 17:40 LDL Cholesterol Direct 92 mg/dL (75-193) 11/15/17 17:40 HDL Cholesterol 40 mg/dL (23-92) 11/15/17 17:40 TSH 1.84 uIU/ml (0.34-5.60) 11/15/17 17:40 Urine Source CLEAN C 11/15/17 18:15 Urine Color YELLOW 11/15/17 18:15 Urine Clarity CLEAR (CLEAR) 11/15/17 18:15 Urine pH 6.0 (4.6 - 8.0) 11/15/17 18:15 Ur Specific [place] 1.020 (1.005-1.030) 11/15/17 18:15 Urine Protein NEGATIVE mg/dL (NEGATIVE) 11/15/17 18:15 Urine Glucose (UA) NEGATIVE mg/dL (NEGATIVE) 11/15/17 18:15 Urine Ketones NEGATIVE mg/dL (NEGATIVE) 11/15/17 18:15 Urine Blood SMALL (NEGATIVE) H 11/15/17 18:15 Urine Nitrate NEGATIVE (NEGATIVE) 11/15/17 18:15 Urine Bilirubin NEGATIVE (NEGATIVE) 11/15/17 18:15 Urine Urobilinogen 0.2 E.U./dL (0.2 - 1.0) 11/15/17 18:15 Ur Leukocyte Esterase NEGATIVE (NEGATIVE) 11/15/17 18:15 Urine RBC 2-5 /hpf (0-5) H 11/15/17 18:15 Urine WBC 0-2 /hpf (0-5) 11/15/17 18:15 Ur Epithelial Cells FEW /lpf (FEW) 11/15/17 18:15 Urine Bacteria FEW /hpf (NONE SEEN) 11/15/17 18:15 Salicylates < 25.0 mg/L (30.0-100.0) L 11/15/17 17:40 Urine Opiates Screen NEGATIVE (NEGATIVE) 11/15/17 18:15 Urine Methadone Screen NEGATIVE (NEGATIVE) 11/15/17 18:15 Acetaminophen < 10.0 ug/mL (10.0-30.0) L 11/15/17 17:40 Ur Barbiturates Screen NEGATIVE (NEGATIVE) 11/15/17 18:15 Ur Tricyclics Screen NEGATIVE (NEGATIVE) 11/15/17 18:15 Ur Phencyclidine Scrn NEGATIVE (NEGATIVE) 11/15/17 18:15 Amphetamines Screen NEGATIVE (NEGATIVE) 11/15/17 18:15 U Methamphetamines Scrn NEGATIVE (NEGATIVE) 11/15/17 18:15 U Benzodiazepines Scrn NEGATIVE (NEGATIVE) 11/15/17 18:15 U Cocaine Metab Screen NEGATIVE (NEGATIVE) 11/15/17 18:15 U Cannabinoids Screen NEGATIVE (NEGATIVE) 11/15/17 18:15 Ethyl Alcohol < 10 mg/dL (0-10) 11/15/17 17:40 RPR NONREACTIVE (NONREACTIVE) 11/15/17 17:40 - Physical Exam Vitals and I&O: Vital Signs Temp 98.4 F 11/17/17 06:35 Pulse 70 11/17/17 06:35 Resp 20 11/17/17 06:35 BP 104/64 11/17/17 06:35 Pulse Ox 97 11/17/17 06:35 Intake & Output 11/16/17 11/17/17 11/17/17 18:59 06:59 18:59 Intake Total 1120 Balance 1120 Intake: Oral 1120 Other: # Voids 2 # Bowel Movements 1 Active Medications: Current Medications Acetaminophen (Tylenol) 650 mg PO Q4HR PRN PRN Reason: Mild Pain / Temp above 100 Stop: 01/14/18 20:58 Al Hydrox/Mg Hydrox/Simethicone (Maalox) 30 ml PO Q4HR PRN PRN Reason: GI DISTRESS Stop: 01/14/18 20:55 Atorvastatin Calcium (Lipitor) 10 mg PO HS [facility]; Protocol Stop: 01/14/18 20:59 Last Admin: 11/16/17 20:45 Dose: 10 mg Clonazepam (Klonopin) 0.5 mg PO BID PRN; Protocol PRN Reason: Anxiety Stop: 01/14/18 20:47 Last Admin: 11/16/17 11:22 Dose: 0.5 mg Divalproex Sodium (Depakote Sprinkle) 500 mg PO HS [facility] Stop: 01/14/18 22:59 Last Admin: 11/16/17 20:45 Dose: 500 mg Divalproex Sodium (Depakote Dr) 250 mg PO DAILY [facility] Stop: 01/15/18 08:59 Last Admin: 11/17/17 09:04 Dose: 250 mg Magnesium Hydroxide (Milk Of Magnesia) 30 ml PO HS PRN PRN Reason: Constipation Olanzapine (Zyprexa Zydis) 10 mg PO HS [facility]; Protocol Stop: 01/14/18 20:59 Last Admin: 11/16/17 20:45 Dose: 10 mg Oxcarbazepine (Trileptal) 300 mg PO BID [facility]; Protocol Stop: 01/15/18 08:59 Last Admin: 11/17/17 09:05 Dose: 300 mg Zolpidem Tartrate (Ambien) 5 mg PO HS PRN PRN Reason: Insomnia Stop: 01/14/18 20:55 Last Admin: 11/16/17 20:47 Dose: 5 mg General: Alert, Other (Confused) HEENT: Atraumatic Neck: Supple Cardiovascular: Regular rate Lungs: Clear to auscultation Abdomen: Bowel sounds, Soft Extremities: Other (No edema) Neurological: Normal gait Psych/Mental Status: Other (Confused not oriented. ) Assessment/Plan - Assessment Assessment: Patient is awake, alert in no acute distress. Dx Increased in agitation, Dementia, schizophrenia, hyperlipidemia - Plan Plan: Patient is under psychiatric care. She is continue with SNF meds. CBC is requested. Will continue to monitor.
[2017-11-17] MEDS ORDERED: Haloperidol Lactate 5 mg/mL 1mL Vial ONE (16:42)
[2017-11-17] MEDS ORDERED: Haloperidol Lactate 5 mg/mL 1mL Vial IM STA (16:43)
[2017-11-17] MEDS: OLANZapine 10 mg Oral Disintegrating Tab PO SCH (21:05)
[2017-11-17] MEDS: Atorvastatin Calcium 10 MG TAB PO SCH (21:05)
--- NOTE | 2017-11-18 03:14 | Progress Notes ---
DATE: 11/17/2017 SUBJECTIVE: Staff was spoken to. The patient is interviewed. Mood is noted to be irritable. Affect is constricted. The patient's coping skills are noted to be very poor. The patient is still testing the limits. The patient has no insight into his illness. The patient has to be given a dose of the Haldol, Benadryl and Ativan to calm him down. ASSESSMENT: The patient is still psychotic and impulsive. PLAN: To continue the patient with the supportive therapy, we encouraged the patient to verbalize the concerns rather than to act out. Please note that the patient is not ready to be discharged to a lower level of care yet. JOB# [id number]
[2017-11-18 07:26] LABS: % BASOPHILS 0.6 % (0.0-2.0); % EOSINOPHILS 1.5 % (0.0-5.0); % LYMPHOCYTES 27.9 % (20.0-50.0); % MONOCYTES 8.7 % (2.0-10.0); % NEUTROPHILS 61.3 % (40.0-80.0); BASOPHILE ABSOLUTE 0.1 Th/cumm (0-0.2); EOSINOPHILE ABSOLUTE 0.2 Th/cmm (0.1-0.4); HEMATOCRIT 42.4 % (41.0-60); LYMPHOCYTE ABSOLUTE 3.1 Th/cmm (1.5-3.0); MEAN CELL VOLUME 94.3 fl (80-99); MEAN CORPUSCULAR HEMOGLOBIN 31.2 pg (26.0-30.0); MEAN CORPUSCULAR HGB CONC 33.1 pg (28.0-36.0); MEAN PLATELET VOLUME 8.3 fl; NEUTROPHILE ABSOLUTE 6.7 Th/cmm (1.8-8.0); PLATELET COUNT 373 Th/cmm (150-400); RED BLOOD COUNT 4.49 Mil/cmm (4.30-5.70); RED CELL DISTRIBUTION WIDTH 13.7 % (11.5-20.0); WHITE BLOOD COUNT 11.1 Th/cmm (4.8-10.8)
[2017-11-18 07:42] LABS: ALB/GLOB RATIO 1.3 (1.0-1.8); ALBUMIN 3.8 gm/dL (4.2-5.5); ALKALINE PHOSPHATASE 38 U/L (34-104); BILIRUBIN,TOTAL 0.3 mg/dL (0.3-1.0); BUN - UREA NITROGEN 22 mg/dL (7-25); CALCIUM SERUM 8.9 mg/dL (8.6-10.3); CHLORIDE 110 mEq/L (98-107); GFR AFRICAN-AMERICAN > 60.0 ml/min (>90); GFR NON AFRICAN-AMERICAN > 60.0 ml/min; GLUCOSE 86 mg/dL (70-105); SGOT 21 U/L (13-39); SGPT/ALT 15 U/L (7-52); SODIUM SERUM 142 mEq/L (136-145); TOTAL PROTEIN,SERUM 6.7 gm/dL (6.0-8.3)
--- NOTE | 2017-11-18 09:44 | General Progress Note ---
Subjective - Review of Systems Service Date: 11/18/17 Subjective: Patient is confused Objective - Results Result Diagrams: 11/18/17 06:52 11/18/17 06:52 Recent Labs: Laboratory Last Values WBC 11.1 Th/cmm (4.8-10.8) H 11/18/17 06:52 RBC 4.49 Mil/cmm (4.30-5.70) 11/18/17 06:52 Hgb 14.0 gm/dL (12-16) 11/18/17 06:52 Hct 42.4 % (41.0-60) 11/18/17 06:52 MCV 94.3 fl (80-99) 11/18/17 06:52 MCH 31.2 pg (26.0-30.0) H 11/18/17 06:52 MCHC Differential 33.1 pg (28.0-36.0) 11/18/17 06:52 RDW 13.7 % (11.5-20.0) 11/18/17 06:52 Plt Count 373 Th/cmm (150-400) 11/18/17 06:52 MPV 8.3 fl 11/18/17 06:52 Neutrophils % 61.3 % (40.0-80.0) 11/18/17 06:52 Lymphocytes % 27.9 % (20.0-50.0) 11/18/17 06:52 Monocytes % 8.7 % (2.0-10.0) 11/18/17 06:52 Eosinophils % 1.5 % (0.0-5.0) 11/18/17 06:52 Basophils % 0.6 % (0.0-2.0) 11/18/17 06:52 Sodium 142 mEq/L (136-145) 11/18/17 06:52 Potassium 4.0 mEq/L (3.5-5.1) 11/18/17 06:52 Chloride 110 mEq/L (98-107) H 11/18/17 06:52 Carbon Dioxide 24.0 mEq/L (21.0-31.0) 11/18/17 06:52 Anion Gap 12.0 (7.0-16.0) 11/18/17 06:52 BUN 22 mg/dL (7-25) 11/18/17 06:52 Creatinine 1.0 mg/dL (0.7-1.3) 11/18/17 06:52 Est GFR ( Amer) > 60.0 ml/min (>90) 11/18/17 06:52 Est GFR (Non-Af Amer) > 60.0 ml/min 11/18/17 06:52 BUN/Creatinine Ratio 22.0 11/18/17 06:52 Glucose 86 mg/dL (70-105) 11/18/17 06:52 Hemoglobin A1c % 6.2 % (4.0-6.0) H 11/15/17 17:40 Calcium 8.9 mg/dL (8.6-10.3) 11/18/17 06:52 Total Bilirubin 0.3 mg/dL (0.3-1.0) 11/18/17 06:52 AST 21 U/L (13-39) 11/18/17 06:52 ALT 15 U/L (7-52) 11/18/17 06:52 Alkaline Phosphatase 38 U/L (34-104) 11/18/17 06:52 Troponin I < 0.01 ng/mL (0.01-0.05) L 11/15/17 17:40 Total Protein 6.7 gm/dL (6.0-8.3) 11/18/17 06:52 Albumin 3.8 gm/dL (4.2-5.5) L 11/18/17 06:52 Globulin 2.9 gm/dL 11/18/17 06:52 Albumin/Globulin Ratio 1.3 (1.0-1.8) 11/18/17 06:52 Triglycerides 182 mg/dL (<150) H 11/15/17 17:40 Cholesterol 171 mg/dL (<200) 11/15/17 17:40 LDL Cholesterol Direct 92 mg/dL (75-193) 11/15/17 17:40 HDL Cholesterol 40 mg/dL (23-92) 11/15/17 17:40 TSH 1.84 uIU/ml (0.34-5.60) 11/15/17 17:40 Urine Source CLEAN C 11/15/17 18:15 Urine Color YELLOW 11/15/17 18:15 Urine Clarity CLEAR (CLEAR) 11/15/17 18:15 Urine pH 6.0 (4.6 - 8.0) 11/15/17 18:15 Ur Specific [place] 1.020 (1.005-1.030) 11/15/17 18:15 Urine Protein NEGATIVE mg/dL (NEGATIVE) 11/15/17 18:15 Urine Glucose (UA) NEGATIVE mg/dL (NEGATIVE) 11/15/17 18:15 Urine Ketones NEGATIVE mg/dL (NEGATIVE) 11/15/17 18:15 Urine Blood SMALL (NEGATIVE) H 11/15/17 18:15 Urine Nitrate NEGATIVE (NEGATIVE) 11/15/17 18:15 Urine Bilirubin NEGATIVE (NEGATIVE) 11/15/17 18:15 Urine Urobilinogen 0.2 E.U./dL (0.2 - 1.0) 11/15/17 18:15 Ur Leukocyte Esterase NEGATIVE (NEGATIVE) 11/15/17 18:15 Urine RBC 2-5 /hpf (0-5) H 11/15/17 18:15 Urine WBC 0-2 /hpf (0-5) 11/15/17 18:15 Ur Epithelial Cells FEW /lpf (FEW) 11/15/17 18:15 Urine Bacteria FEW /hpf (NONE SEEN) 11/15/17 18:15 Salicylates < 25.0 mg/L (30.0-100.0) L 11/15/17 17:40 Urine Opiates Screen NEGATIVE (NEGATIVE) 11/15/17 18:15 Urine Methadone Screen NEGATIVE (NEGATIVE) 11/15/17 18:15 Acetaminophen < 10.0 ug/mL (10.0-30.0) L 11/15/17 17:40 Ur Barbiturates Screen NEGATIVE (NEGATIVE) 11/15/17 18:15 Valproic Acid 46.8 ug/mL (50.0-100.0) L 11/18/17 06:52 Ur Tricyclics Screen NEGATIVE (NEGATIVE) 11/15/17 18:15 Ur Phencyclidine Scrn NEGATIVE (NEGATIVE) 11/15/17 18:15 Amphetamines Screen NEGATIVE (NEGATIVE) 11/15/17 18:15 U Methamphetamines Scrn NEGATIVE (NEGATIVE) 11/15/17 18:15 U Benzodiazepines Scrn NEGATIVE (NEGATIVE) 11/15/17 18:15 U Cocaine Metab Screen NEGATIVE (NEGATIVE) 11/15/17 18:15 U Cannabinoids Screen NEGATIVE (NEGATIVE) 11/15/17 18:15 Ethyl Alcohol < 10 mg/dL (0-10) 11/15/17 17:40 RPR NONREACTIVE (NONREACTIVE) 11/15/17 17:40 - Physical Exam Vitals and I&O: Vital Signs Temp 99 F 11/18/17 06:04 Pulse 75 11/18/17 06:04 Resp 20 11/18/17 06:04 BP 166/70 11/18/17 06:04 Pulse Ox 96 11/18/17 06:04 Intake & Output 11/17/17 11/18/17 11/18/17 18:59 06:59 18:59 Intake Total 1200 120 Balance 1200 120 Intake: Oral 1200 120 Other: # Voids 3 # Bowel Movements 1 0 Stool Characteristics Soft Soft Formed Formed Brown Brown Active Medications: Current Medications Acetaminophen (Tylenol) 650 mg PO Q4HR PRN PRN Reason: Mild Pain / Temp above 100 Stop: 01/14/18 20:58 Last Admin: 11/17/17 15:35 Dose: 650 mg Al Hydrox/Mg Hydrox/Simethicone (Maalox) 30 ml PO Q4HR PRN PRN Reason: GI DISTRESS Stop: 01/14/18 20:55 Atorvastatin Calcium (Lipitor) 10 mg PO HS [facility]; Protocol Stop: 01/14/18 20:59 Last Admin: 11/17/17 21:05 Dose: 10 mg Clonazepam (Klonopin) 0.5 mg PO BID PRN; Protocol PRN Reason: Anxiety Stop: 01/14/18 20:47 Last Admin: 11/18/17 08:32 Dose: 0.5 mg Divalproex Sodium (Depakote Sprinkle) 500 mg PO HS [facility] Stop: 01/14/18 22:59 Last Admin: 11/17/17 21:05 Dose: 500 mg Divalproex Sodium (Depakote Dr) 500 mg PO DAILY [facility] Stop: 01/17/18 08:59 Last Admin: 11/18/17 09:07 Dose: 500 mg Magnesium Hydroxide (Milk Of Magnesia) 30 ml PO HS PRN PRN Reason: Constipation Mupirocin (Bactroban Oint) 1 appl NS BID [facility] Stop: 11/22/17 09:01 Last Admin: 11/18/17 08:32 Dose: 1 appl Olanzapine (Zyprexa Zydis) 10 mg PO HS [facility]; Protocol Stop: 01/14/18 20:59 Last Admin: 11/17/17 21:05 Dose: 10 mg Oxcarbazepine (Trileptal) 300 mg PO BID [facility]; Protocol Stop: 01/15/18 08:59 Last Admin: 11/18/17 08:32 Dose: 300 mg Zolpidem Tartrate (Ambien) 5 mg PO HS PRN PRN Reason: Insomnia Stop: 01/14/18 20:55 Last Admin: 11/17/17 21:05 Dose: 5 mg General: Alert, Other (Confused) HEENT: Atraumatic Neck: Supple Cardiovascular: Regular rate Lungs: Clear to auscultation Abdomen: Bowel sounds, Soft Extremities: Other (No edema) Neurological: Normal gait Psych/Mental Status: Other (Confused not oriented. ) Assessment/Plan - Assessment Assessment: Patient is awake, alert in no acute distress. WBC a little increased. Dx Increased in agitation, Dementia, schizophrenia, hyperlipidemia - Plan Plan: Patient is under psychiatric care. She is continue with SNF meds.
--- NOTE | 2017-11-18 10:22 | Progress Notes ---
DATE: 11/18/2017 SUBJECTIVE: Staff was spoken to. The patient is interviewed. Mood is noted to be irritable. Affect is constricted. Insight and judgment are noted to be still impaired. The patient has been having acute mood swings, more so in the morning. No side effects to the medications are noted. The patient has been currently on Depakote, which I am increasing it to 500 mg twice a day. The patient is going to be continued on the olanzapine 10 mg at bedtime. The patient is going to be closely monitored and followed. The patient's blood sugar is noted to be 122 and triglycerides are noted to be 182, and the patient is being closely monitored. ASSESSMENT: The patient is still impulsive and paranoid. PLAN: To continue the patient with the supportive therapy, encouraged the patient to verbalize the concerns rather than to act out. JOB# [id number]
[2017-11-18] MEDS: OLANZapine 10 mg Oral Disintegrating Tab PO SCH (20:05)
[2017-11-18] MEDS: Atorvastatin Calcium 10 MG TAB PO SCH (20:05)
--- NOTE | 2017-11-18 22:56 | Consultation ---
DATE OF CONSULTATION: 11/17/2017 REFERRING PHYSICIAN: Ladi Reyes M.D. TYPE OF CONSULTATION: Psychology. HISTORY OF PRESENT ILLNESS: The patient is a 61-year-old male who is a resident of [facility]. This patient is known to this personal lines underwriter from a previous hospitalization. The following is by record review and by patient self-report. According to the staff at the patient's facility the patient had become very withdrawn and isolative and indicating possible mood swings. Upon interview, the patient is selectively mute. The patient is nodding his head yes or no to most of the clinical questions in this interview, the patient is not providing much information. The staff at the patient's facility indicate that he had become easily agitated and aggressive towards the staff. The patient denies this behavior. The patient denied any suicidal ideation, plan or intention. PAST MEDICAL HISTORY: Please see history and physical by Dr. Bhatia. PAST PSYCHIATRIC HISTORY: The patient has a history of schizoaffective disorder and is under the care of a psychiatrist at his facility. The patient has multiple previous hospitalizations. SUBSTANCE ABUSE HISTORY: The patient denies any history. PSYCHOSOCIAL HISTORY: The patient did not answer questions about occupational or educational history or amish affiliation. The patient stated no family relationships or friends. The patient stated no support system. The patient did not answer questions about current legal problems. The patient did not answer questions about history of physical or sexual abuse. MENTAL STATUS EXAMINATION: The patient appears to be his stated age. The patient's attitude is superficially cooperative, but guarded. Eye contact is poor. Speech is delayed and soft. Mood is irritable. Affect is constricted. Thought process shows to be illogical at times; however, this needs further evaluation. The patient denied any suicidal ideation, plan or intention. There is possible paranoid ideation present. The patient's behavior has been redirectable on the unit so far according to staff. Impulse control is limited. Concentration is poor. Sensorium is alert and oriented to self and place. The patient did not participate in the memory assessment. The patient did not participate in the interpretation of proverbs. The patient's insight is poor. Judgment is impaired. DIAGNOSTIC IMPRESSION: AXIS I: History of schizoaffective disorder. AXIS II: Deferred. AXIS III: Per Dr. Bhatia. TREATMENT PLAN: The patient has been seen by Dr. Reyes for psychiatric evaluation and for the management of the patient's psychotropic medications. We will provide supportive psychotherapy to include reality orientation, differentiation and integration. We will provide motivational enhancement for the patient to become compliant and stay compliant with all aspects of his care and treatment. We will provide limit setting and a model appropriate behavior to encourage the patient in verbalizing his concerns versus acting out aggressively. We will encourage the patient to verbally contract for safety. We will encourage the patient to be able to demonstrate emotional and self-regulation prior to his discharge. We will also provide coping strategies for phase of life issues as well as chronic severe mental illness to assist him in adjusting to his long-term care environment. Thank you Dr. Reyes for this consult and the opportunity to participate in this patient's care. JOB# [id number] [id number]
--- NOTE | 2017-11-19 09:37 | General Progress Note ---
Subjective - Review of Systems Service Date: 11/19/17 Subjective: Patient is confused Objective - Results Result Diagrams: 11/18/17 06:52 11/18/17 06:52 Recent Labs: Laboratory Last Values WBC 11.1 Th/cmm (4.8-10.8) H 11/18/17 06:52 RBC 4.49 Mil/cmm (4.30-5.70) 11/18/17 06:52 Hgb 14.0 gm/dL (12-16) 11/18/17 06:52 Hct 42.4 % (41.0-60) 11/18/17 06:52 MCV 94.3 fl (80-99) 11/18/17 06:52 MCH 31.2 pg (26.0-30.0) H 11/18/17 06:52 MCHC Differential 33.1 pg (28.0-36.0) 11/18/17 06:52 RDW 13.7 % (11.5-20.0) 11/18/17 06:52 Plt Count 373 Th/cmm (150-400) 11/18/17 06:52 MPV 8.3 fl 11/18/17 06:52 Neutrophils % 61.3 % (40.0-80.0) 11/18/17 06:52 Lymphocytes % 27.9 % (20.0-50.0) 11/18/17 06:52 Monocytes % 8.7 % (2.0-10.0) 11/18/17 06:52 Eosinophils % 1.5 % (0.0-5.0) 11/18/17 06:52 Basophils % 0.6 % (0.0-2.0) 11/18/17 06:52 Sodium 142 mEq/L (136-145) 11/18/17 06:52 Potassium 4.0 mEq/L (3.5-5.1) 11/18/17 06:52 Chloride 110 mEq/L (98-107) H 11/18/17 06:52 Carbon Dioxide 24.0 mEq/L (21.0-31.0) 11/18/17 06:52 Anion Gap 12.0 (7.0-16.0) 11/18/17 06:52 BUN 22 mg/dL (7-25) 11/18/17 06:52 Creatinine 1.0 mg/dL (0.7-1.3) 11/18/17 06:52 Est GFR ( Amer) > 60.0 ml/min (>90) 11/18/17 06:52 Est GFR (Non-Af Amer) > 60.0 ml/min 11/18/17 06:52 BUN/Creatinine Ratio 22.0 11/18/17 06:52 Glucose 86 mg/dL (70-105) 11/18/17 06:52 Hemoglobin A1c % 6.2 % (4.0-6.0) H 11/15/17 17:40 Calcium 8.9 mg/dL (8.6-10.3) 11/18/17 06:52 Total Bilirubin 0.3 mg/dL (0.3-1.0) 11/18/17 06:52 AST 21 U/L (13-39) 11/18/17 06:52 ALT 15 U/L (7-52) 11/18/17 06:52 Alkaline Phosphatase 38 U/L (34-104) 11/18/17 06:52 Troponin I < 0.01 ng/mL (0.01-0.05) L 11/15/17 17:40 Total Protein 6.7 gm/dL (6.0-8.3) 11/18/17 06:52 Albumin 3.8 gm/dL (4.2-5.5) L 11/18/17 06:52 Globulin 2.9 gm/dL 11/18/17 06:52 Albumin/Globulin Ratio 1.3 (1.0-1.8) 11/18/17 06:52 Triglycerides 182 mg/dL (<150) H 11/15/17 17:40 Cholesterol 171 mg/dL (<200) 11/15/17 17:40 LDL Cholesterol Direct 92 mg/dL (75-193) 11/15/17 17:40 HDL Cholesterol 40 mg/dL (23-92) 11/15/17 17:40 TSH 1.84 uIU/ml (0.34-5.60) 11/15/17 17:40 Urine Source CLEAN C 11/15/17 18:15 Urine Color YELLOW 11/15/17 18:15 Urine Clarity CLEAR (CLEAR) 11/15/17 18:15 Urine pH 6.0 (4.6 - 8.0) 11/15/17 18:15 Ur Specific [place] 1.020 (1.005-1.030) 11/15/17 18:15 Urine Protein NEGATIVE mg/dL (NEGATIVE) 11/15/17 18:15 Urine Glucose (UA) NEGATIVE mg/dL (NEGATIVE) 11/15/17 18:15 Urine Ketones NEGATIVE mg/dL (NEGATIVE) 11/15/17 18:15 Urine Blood SMALL (NEGATIVE) H 11/15/17 18:15 Urine Nitrate NEGATIVE (NEGATIVE) 11/15/17 18:15 Urine Bilirubin NEGATIVE (NEGATIVE) 11/15/17 18:15 Urine Urobilinogen 0.2 E.U./dL (0.2 - 1.0) 11/15/17 18:15 Ur Leukocyte Esterase NEGATIVE (NEGATIVE) 11/15/17 18:15 Urine RBC 2-5 /hpf (0-5) H 11/15/17 18:15 Urine WBC 0-2 /hpf (0-5) 11/15/17 18:15 Ur Epithelial Cells FEW /lpf (FEW) 11/15/17 18:15 Urine Bacteria FEW /hpf (NONE SEEN) 11/15/17 18:15 Salicylates < 25.0 mg/L (30.0-100.0) L 11/15/17 17:40 Urine Opiates Screen NEGATIVE (NEGATIVE) 11/15/17 18:15 Urine Methadone Screen NEGATIVE (NEGATIVE) 11/15/17 18:15 Acetaminophen < 10.0 ug/mL (10.0-30.0) L 11/15/17 17:40 Ur Barbiturates Screen NEGATIVE (NEGATIVE) 11/15/17 18:15 Valproic Acid 46.8 ug/mL (50.0-100.0) L 11/18/17 06:52 Ur Tricyclics Screen NEGATIVE (NEGATIVE) 11/15/17 18:15 Ur Phencyclidine Scrn NEGATIVE (NEGATIVE) 11/15/17 18:15 Amphetamines Screen NEGATIVE (NEGATIVE) 11/15/17 18:15 U Methamphetamines Scrn NEGATIVE (NEGATIVE) 11/15/17 18:15 U Benzodiazepines Scrn NEGATIVE (NEGATIVE) 11/15/17 18:15 U Cocaine Metab Screen NEGATIVE (NEGATIVE) 11/15/17 18:15 U Cannabinoids Screen NEGATIVE (NEGATIVE) 11/15/17 18:15 Ethyl Alcohol < 10 mg/dL (0-10) 11/15/17 17:40 RPR NONREACTIVE (NONREACTIVE) 11/15/17 17:40 - Physical Exam Vitals and I&O: Vital Signs Temp 0 F 11/19/17 06:13 Pulse 82 11/18/17 20:04 Resp 19 11/18/17 20:04 BP 101/78 11/18/17 20:04 Pulse Ox 97 11/18/17 20:04 Intake & Output 11/18/17 11/19/17 11/19/17 18:59 06:59 18:59 Intake Total 1000 240 Balance 1000 240 Intake: Oral 1000 240 Other: # Voids 4 3 # Bowel Movements 1 0 Stool Characteristics Soft Formed Brown Active Medications: Current Medications Acetaminophen (Tylenol) 650 mg PO Q4HR PRN PRN Reason: Mild Pain / Temp above 100 Stop: 01/14/18 20:58 Last Admin: 11/17/17 15:35 Dose: 650 mg Al Hydrox/Mg Hydrox/Simethicone (Maalox) 30 ml PO Q4HR PRN PRN Reason: GI DISTRESS Stop: 01/14/18 20:55 Atorvastatin Calcium (Lipitor) 10 mg PO HS HARITHA; Protocol Stop: 01/14/18 20:59 Last Admin: 11/18/17 20:05 Dose: 10 mg Clonazepam (Klonopin) 0.5 mg PO BID PRN; Protocol PRN Reason: Anxiety Stop: 01/14/18 20:47 Last Admin: 11/19/17 08:02 Dose: 0.5 mg Divalproex Sodium (Depakote Sprinkle) 500 mg PO HS HARITHA Stop: 01/14/18 22:59 Last Admin: 11/18/17 20:05 Dose: 500 mg Divalproex Sodium (Depakote Dr) 500 mg PO DAILY HARITHA Stop: 01/17/18 08:59 Last Admin: 11/19/17 08:02 Dose: 500 mg Magnesium Hydroxide (Milk Of Magnesia) 30 ml PO HS PRN PRN Reason: Constipation Mupirocin (Bactroban Oint) 1 appl NS BID HARITHA Stop: 11/22/17 09:01 Last Admin: 11/19/17 08:03 Dose: 1 appl Olanzapine (Zyprexa Zydis) 10 mg PO HS HARITHA; Protocol Stop: 01/14/18 20:59 Last Admin: 11/18/17 20:05 Dose: 10 mg Oxcarbazepine (Trileptal) 300 mg PO BID HARITHA; Protocol Stop: 01/15/18 08:59 Last Admin: 11/19/17 08:02 Dose: 300 mg Zolpidem Tartrate (Ambien) 5 mg PO HS PRN PRN Reason: Insomnia Stop: 01/14/18 20:55 Last Admin: 11/18/17 20:06 Dose: 5 mg General: Alert, Other (Confused) HEENT: Atraumatic Neck: Supple Cardiovascular: Regular rate Lungs: Clear to auscultation Abdomen: Bowel sounds, Soft Extremities: Other (No edema) Neurological: Normal gait Psych/Mental Status: Other (Confused not oriented. ) Assessment/Plan - Assessment Assessment: Patient is awake, alert in no acute distress. WBC a little increased. Dx Increased in agitation, Dementia, schizophrenia, hyperlipidemia - Plan Plan: Patient is under psychiatric care. She is continue with SNF meds. Nutritional Asmnt/Malnutr-PDOC - Dietary Evaluation Malnutrition Findings (Please click <Entered> for more info): Nutritional Asmnt/Malnutrition Start: 11/18/17 10: 16 Text: Status: Complete Freq: Protocol: Document 11/18/17 10:16 GISSEL (Rec: 11/18/17 10:20 GISSEL [email or web address] [email or web address]) Nutritional Asmnt/Malnutrition Patient General Information Diagnosis psychosis Pertinent Medical Hx/Surgical Hx schizophrenia, dementia, hyperlipidemia Subjective Information Pt asleep at time of visit Current Diet Order/ Nutrition Support DAYAMI Pertinent Medications Maalox, lipitor, MOM Pertinent Labs 11/15: Na 138, K 4.1, Cl 105, CO2 23.9, BUN 19, Cr 1.1, Ca 9 .1, glucose 122 Nutritional Hx/Data Height 1.83 m Height (Calculated Centimeters) 182.9 Current Weight (lbs) 79.379 kg Weight (Calculated Kilograms) 79.4 Weight (Calculated Grams) 41458.7 Body Mass Index (BMI) 23.7 Weight Status Approriate GI Symptoms GI Symptoms None Last BM 11/17 Cultural/Ethnic/Islam Belief unknown Usual diet at home Cardiac Skin Integrity/Comment: carol score 17, intact Estimated Nutritional Goals BEE in Kcals: Using Current wt Calories/Kcals/Kg 25-30kcals/kg Kcals Calculated 1974-2369kcals/day Protein: Using Current wt Protein g/k-1.2g/kg Protein Calculated 79-95g/day Fluid: ml 1974-2369ml/day (1ml/kcal) Nutritional Problem 1. Problem Problem No nutrition diagnosis at this time Intervention/Recommendation Comments Recommend continuing DAYAMI diet Expected Outcomes/Goals Expected Outcomes/Goals PO intake >75% of meals
[2017-11-19 10:14] LABS: % BASOPHILS 0.5 % (0.0-2.0); % EOSINOPHILS 1.8 % (0.0-5.0); % LYMPHOCYTES 26.8 % (20.0-50.0); % MONOCYTES 9.6 % (2.0-10.0); % NEUTROPHILS 61.3 % (40.0-80.0); BASOPHILE ABSOLUTE 0.1 Th/cumm (0-0.2); EOSINOPHILE ABSOLUTE 0.2 Th/cmm (0.1-0.4); HEMOGLOBIN 13.7 gm/dL (12-16); LYMPHOCYTE ABSOLUTE 2.7 Th/cmm (1.5-3.0); MEAN CORPUSCULAR HEMOGLOBIN 31.4 pg (26.0-30.0); MEAN CORPUSCULAR HGB CONC 33.4 pg (28.0-36.0); NEUTROPHILE ABSOLUTE 6.1 Th/cmm (1.8-8.0); PLATELET COUNT 358 Th/cmm (150-400); RED BLOOD COUNT 4.36 Mil/cmm (4.30-5.70); RED CELL DISTRIBUTION WIDTH 13.9 % (11.5-20.0); WHITE BLOOD COUNT 10.1 Th/cmm (4.8-10.8)
[2017-11-19 10:37] LABS: ALB/GLOB RATIO 1.3 (1.0-1.8); ALBUMIN 3.6 gm/dL (4.2-5.5); ALKALINE PHOSPHATASE 37 U/L (34-104); ANION GAP 10.6 (7.0-16.0); BILIRUBIN,TOTAL 0.3 mg/dL (0.3-1.0); BUN - UREA NITROGEN 22 mg/dL (7-25); CALCIUM SERUM 8.8 mg/dL (8.6-10.3); CARBON DIOXIDE 25.1 mEq/L (21.0-31.0); CHLORIDE 107 mEq/L (98-107); CREATININE - SERUM 0.9 mg/dL (0.7-1.3); GFR AFRICAN-AMERICAN > 60.0 ml/min (>90); GFR NON AFRICAN-AMERICAN > 60.0 ml/min; GLUCOSE 114 mg/dL (70-105); POTASSIUM SERUM 3.7 mEq/L (3.5-5.1); SGOT 15 U/L (13-39); SGPT/ALT 15 U/L (7-52); SODIUM SERUM 139 mEq/L (136-145); TOTAL PROTEIN,SERUM 6.4 gm/dL (6.0-8.3)
--- NOTE | 2017-11-19 19:11 | Progress Notes ---
DATE: 11/19/2017 SUBJECTIVE: Staff was spoken to. The patient is interviewed. Mood is noted to be irritable. Affect is constricted. Mood swings are still a concern and patient is extremely paranoid, isolative and withdrawn. No side effects. ASSESSMENT: The patient is still psychotic and impulsive. PLAN: To continue the patient with the Supportive therapy, encouraged the patient to verbalize the concerns rather than to act out and the patient is not ready to be discharged at this time. The patient has been getting easily frustrated and does not want to participate in any of the groups. JOB# [id number]
[2017-11-19] MEDS: Atorvastatin Calcium 10 MG TAB PO SCH (21:00)
[2017-11-19] MEDS: OLANZapine 10 mg Oral Disintegrating Tab PO SCH (21:00)
[2017-11-20 06:34] LABS: % BASOPHILS 0.5 % (0.0-2.0); % EOSINOPHILS 1.9 % (0.0-5.0); % LYMPHOCYTES 25.2 % (20.0-50.0); % MONOCYTES 8.5 % (2.0-10.0); % NEUTROPHILS 63.9 % (40.0-80.0); BASOPHILE ABSOLUTE 0.1 Th/cumm (0-0.2); EOSINOPHILE ABSOLUTE 0.3 Th/cmm (0.1-0.4); HEMATOCRIT 41.6 % (41.0-60); HEMOGLOBIN 13.7 gm/dL (12-16); LYMPHOCYTE ABSOLUTE 3.4 Th/cmm (1.5-3.0); MEAN CELL VOLUME 93.7 fl (80-99); MEAN CORPUSCULAR HEMOGLOBIN 30.9 pg (26.0-30.0); MONOCYTE ABSOLUTE 1.1 Th/cmm (0.3-1.0); NEUTROPHILE ABSOLUTE 8.6 Th/cmm (1.8-8.0); PLATELET COUNT 362 Th/cmm (150-400); RED BLOOD COUNT 4.44 Mil/cmm (4.30-5.70); RED CELL DISTRIBUTION WIDTH 13.6 % (11.5-20.0); WHITE BLOOD COUNT 13.5 Th/cmm (4.8-10.8)
[2017-11-20 06:55] LABS: ALB/GLOB RATIO 1.3 (1.0-1.8); ALBUMIN 3.6 gm/dL (4.2-5.5); ALKALINE PHOSPHATASE 35 U/L (34-104); ANION GAP 12.6 (7.0-16.0); BILIRUBIN,TOTAL 0.3 mg/dL (0.3-1.0); BUN - UREA NITROGEN 18 mg/dL (7-25); CALCIUM SERUM 8.8 mg/dL (8.6-10.3); CARBON DIOXIDE 24.3 mEq/L (21.0-31.0); CHLORIDE 106 mEq/L (98-107); CREATININE - SERUM 0.9 mg/dL (0.7-1.3); GFR AFRICAN-AMERICAN > 60.0 ml/min (>90); GFR NON AFRICAN-AMERICAN > 60.0 ml/min; GLUCOSE 85 mg/dL (70-105); POTASSIUM SERUM 3.9 mEq/L (3.5-5.1); SGOT 14 U/L (13-39); SGPT/ALT 14 U/L (7-52); SODIUM SERUM 139 mEq/L (136-145); TOTAL PROTEIN,SERUM 6.3 gm/dL (6.0-8.3)
--- NOTE | 2017-11-20 09:08 | General Progress Note ---
Subjective - Review of Systems Service Date: 11/20/17 Subjective: I have odynophagia Objective - Results Result Diagrams: 11/20/17 06:10 11/20/17 06:10 Recent Labs: Laboratory Last Values WBC 13.5 Th/cmm (4.8-10.8) H 11/20/17 06:10 RBC 4.44 Mil/cmm (4.30-5.70) 11/20/17 06:10 Hgb 13.7 gm/dL (12-16) 11/20/17 06:10 Hct 41.6 % (41.0-60) 11/20/17 06:10 MCV 93.7 fl (80-99) 11/20/17 06:10 MCH 30.9 pg (26.0-30.0) H 11/20/17 06:10 MCHC Differential 33.0 pg (28.0-36.0) 11/20/17 06:10 RDW 13.6 % (11.5-20.0) 11/20/17 06:10 Plt Count 362 Th/cmm (150-400) 11/20/17 06:10 MPV 8.0 fl 11/20/17 06:10 Neutrophils % 63.9 % (40.0-80.0) 11/20/17 06:10 Lymphocytes % 25.2 % (20.0-50.0) 11/20/17 06:10 Monocytes % 8.5 % (2.0-10.0) 11/20/17 06:10 Eosinophils % 1.9 % (0.0-5.0) 11/20/17 06:10 Basophils % 0.5 % (0.0-2.0) 11/20/17 06:10 Sodium 139 mEq/L (136-145) 11/20/17 06:10 Potassium 3.9 mEq/L (3.5-5.1) 11/20/17 06:10 Chloride 106 mEq/L (98-107) 11/20/17 06:10 Carbon Dioxide 24.3 mEq/L (21.0-31.0) 11/20/17 06:10 Anion Gap 12.6 (7.0-16.0) 11/20/17 06:10 BUN 18 mg/dL (7-25) 11/20/17 06:10 Creatinine 0.9 mg/dL (0.7-1.3) 11/20/17 06:10 Est GFR ( Amer) > 60.0 ml/min (>90) 11/20/17 06:10 Est GFR (Non-Af Amer) > 60.0 ml/min 11/20/17 06:10 BUN/Creatinine Ratio 20.0 11/20/17 06:10 Glucose 85 mg/dL (70-105) 11/20/17 06:10 Hemoglobin A1c % 6.2 % (4.0-6.0) H 11/15/17 17:40 Calcium 8.8 mg/dL (8.6-10.3) 11/20/17 06:10 Total Bilirubin 0.3 mg/dL (0.3-1.0) 11/20/17 06:10 AST 14 U/L (13-39) 11/20/17 06:10 ALT 14 U/L (7-52) 11/20/17 06:10 Alkaline Phosphatase 35 U/L (34-104) 11/20/17 06:10 Troponin I < 0.01 ng/mL (0.01-0.05) L 11/15/17 17:40 Total Protein 6.3 gm/dL (6.0-8.3) 11/20/17 06:10 Albumin 3.6 gm/dL (4.2-5.5) L 11/20/17 06:10 Globulin 2.7 gm/dL 11/20/17 06:10 Albumin/Globulin Ratio 1.3 (1.0-1.8) 11/20/17 06:10 Triglycerides 182 mg/dL (<150) H 11/15/17 17:40 Cholesterol 171 mg/dL (<200) 11/15/17 17:40 LDL Cholesterol Direct 92 mg/dL (75-193) 11/15/17 17:40 HDL Cholesterol 40 mg/dL (23-92) 11/15/17 17:40 TSH 1.84 uIU/ml (0.34-5.60) 11/15/17 17:40 Urine Source CLEAN C 11/15/17 18:15 Urine Color YELLOW 11/15/17 18:15 Urine Clarity CLEAR (CLEAR) 11/15/17 18:15 Urine pH 6.0 (4.6 - 8.0) 11/15/17 18:15 Ur Specific [place] 1.020 (1.005-1.030) 11/15/17 18:15 Urine Protein NEGATIVE mg/dL (NEGATIVE) 11/15/17 18:15 Urine Glucose (UA) NEGATIVE mg/dL (NEGATIVE) 11/15/17 18:15 Urine Ketones NEGATIVE mg/dL (NEGATIVE) 11/15/17 18:15 Urine Blood SMALL (NEGATIVE) H 11/15/17 18:15 Urine Nitrate NEGATIVE (NEGATIVE) 11/15/17 18:15 Urine Bilirubin NEGATIVE (NEGATIVE) 11/15/17 18:15 Urine Urobilinogen 0.2 E.U./dL (0.2 - 1.0) 11/15/17 18:15 Ur Leukocyte Esterase NEGATIVE (NEGATIVE) 11/15/17 18:15 Urine RBC 2-5 /hpf (0-5) H 11/15/17 18:15 Urine WBC 0-2 /hpf (0-5) 11/15/17 18:15 Ur Epithelial Cells FEW /lpf (FEW) 11/15/17 18:15 Urine Bacteria FEW /hpf (NONE SEEN) 11/15/17 18:15 Salicylates < 25.0 mg/L (30.0-100.0) L 11/15/17 17:40 Urine Opiates Screen NEGATIVE (NEGATIVE) 11/15/17 18:15 Urine Methadone Screen NEGATIVE (NEGATIVE) 11/15/17 18:15 Acetaminophen < 10.0 ug/mL (10.0-30.0) L 11/15/17 17:40 Ur Barbiturates Screen NEGATIVE (NEGATIVE) 11/15/17 18:15 Valproic Acid 46.8 ug/mL (50.0-100.0) L 11/18/17 06:52 Ur Tricyclics Screen NEGATIVE (NEGATIVE) 11/15/17 18:15 Ur Phencyclidine Scrn NEGATIVE (NEGATIVE) 11/15/17 18:15 Amphetamines Screen NEGATIVE (NEGATIVE) 11/15/17 18:15 U Methamphetamines Scrn NEGATIVE (NEGATIVE) 11/15/17 18:15 U Benzodiazepines Scrn NEGATIVE (NEGATIVE) 11/15/17 18:15 U Cocaine Metab Screen NEGATIVE (NEGATIVE) 11/15/17 18:15 U Cannabinoids Screen NEGATIVE (NEGATIVE) 11/15/17 18:15 Ethyl Alcohol < 10 mg/dL (0-10) 11/15/17 17:40 RPR NONREACTIVE (NONREACTIVE) 11/15/17 17:40 - Physical Exam Vitals and I&O: Vital Signs Temp 98 F 11/19/17 19:51 Pulse 88 11/19/17 19:51 Resp 18 11/20/17 07:49 BP 111/76 11/19/17 19:51 Pulse Ox 96 11/19/17 19:51 Intake & Output 11/19/17 11/20/17 11/20/17 18:59 06:59 18:59 Intake Total 800 420 Balance 800 420 Intake: Oral 800 420 Other: # Voids 3 2 # Bowel Movements 0 0 Active Medications: Current Medications Acetaminophen (Tylenol) 650 mg PO Q4HR PRN PRN Reason: Mild Pain / Temp above 100 Stop: 01/14/18 20:58 Last Admin: 11/17/17 15:35 Dose: 650 mg Al Hydrox/Mg Hydrox/Simethicone (Maalox) 30 ml PO Q4HR PRN PRN Reason: GI DISTRESS Stop: 01/14/18 20:55 Atorvastatin Calcium (Lipitor) 10 mg PO HS HARITHA; Protocol Stop: 01/14/18 20:59 Last Admin: 11/19/17 21:00 Dose: 10 mg Clonazepam (Klonopin) 0.5 mg PO BID PRN; Protocol PRN Reason: Anxiety Stop: 01/14/18 20:47 Last Admin: 11/19/17 16:18 Dose: 0.5 mg Divalproex Sodium (Depakote Sprinkle) 500 mg PO HS HARITHA Stop: 01/14/18 22:59 Last Admin: 11/19/17 21:00 Dose: 500 mg Divalproex Sodium (Depakote Dr) 500 mg PO DAILY HARITHA Stop: 01/17/18 08:59 Last Admin: 11/19/17 08:02 Dose: 500 mg Magnesium Hydroxide (Milk Of Magnesia) 30 ml PO HS PRN PRN Reason: Constipation Mupirocin (Bactroban Oint) 1 appl NS BID HARITHA Stop: 11/22/17 09:01 Last Admin: 11/19/17 16:17 Dose: 1 appl Olanzapine (Zyprexa Zydis) 10 mg PO HS HARITHA; Protocol Stop: 01/14/18 20:59 Last Admin: 08/05/18 21:00 Dose: 10 mg Oxcarbazepine (Trileptal) 300 mg PO BID HARITHA; Protocol Stop: 01/15/18 08:59 Last Admin: 11/19/17 16:18 Dose: 300 mg Zolpidem Tartrate (Ambien) 5 mg PO HS PRN PRN Reason: Insomnia Stop: 01/14/18 20:55 Last Admin: 11/19/17 21:16 Dose: 5 mg General: Alert, Other (Confused) HEENT: Atraumatic Neck: Supple Cardiovascular: Regular rate Lungs: Clear to auscultation Abdomen: Bowel sounds, Soft Extremities: Other (No edema) Neurological: Normal gait Psych/Mental Status: Other (Confused not oriented. ) Assessment/Plan - Assessment Assessment: Patient is awake, alert in no acute distress. WBC is increased, he refer odynophagia. Dx Increased in agitation, Dementia, schizophrenia, hyperlipidemia , Pharyngitis. - Plan Plan: Patient is under psychiatric care. Bactrim id added. She is continue with SNF meds. Nutritional Asmnt/Malnutr-PDOC - Dietary Evaluation Malnutrition Findings (Please click <Entered> for more info): Nutritional Asmnt/Malnutrition Start: 11/18/17 10: 16 Text: Status: Complete Freq: Protocol: Document 11/18/17 10:16 GISSEL (Rec: 11/18/17 10:20 GISSEL [email or web address] [email or web address]) Nutritional Asmnt/Malnutrition Patient General Information Diagnosis psychosis Pertinent Medical Hx/Surgical Hx schizophrenia, dementia, hyperlipidemia Subjective Information Pt asleep at time of visit Current Diet Order/ Nutrition Support DAYAMI Pertinent Medications Maalox, lipitor, MOM Pertinent Labs 11/15: Na 138, K 4.1, Cl 105, CO2 23.9, BUN 19, Cr 1.1, Ca 9 .1, glucose 122 Nutritional Hx/Data Height 1.83 m Height (Calculated Centimeters) 182.9 Current Weight (lbs) 79.379 kg Weight (Calculated Kilograms) 79.4 Weight (Calculated Grams) 17245.7 Body Mass Index (BMI) 23.7 Weight Status Approriate GI Symptoms GI Symptoms None Last BM 11/17 Cultural/Ethnic/Mormonism Belief unknown Usual diet at home Cardiac Skin Integrity/Comment: carol score 17, intact Estimated Nutritional Goals BEE in Kcals: Using Current wt Calories/Kcals/Kg 25-30kcals/kg Kcals Calculated 1974-2369kcals/day Protein: Using Current wt Protein g/k-1.2g/kg Protein Calculated 79-95g/day Fluid: ml 1974-2369ml/day (1ml/kcal) Nutritional Problem 1. Problem Problem No nutrition diagnosis at this time Intervention/Recommendation Comments Recommend continuing DAYAMI diet Expected Outcomes/Goals Expected Outcomes/Goals PO intake >75% of meals
--- NOTE | 2017-11-20 15:58 | General Progress Note ---
Subjective - Review of Systems Events since last encounter: patient awake confused in no acute distress Objective - Results Result Diagrams: 11/20/17 06:10 11/20/17 06:10 Recent Labs: Laboratory Last Values WBC 13.5 Th/cmm (4.8-10.8) H 11/20/17 06:10 RBC 4.44 Mil/cmm (4.30-5.70) 11/20/17 06:10 Hgb 13.7 gm/dL (12-16) 11/20/17 06:10 Hct 41.6 % (41.0-60) 11/20/17 06:10 MCV 93.7 fl (80-99) 11/20/17 06:10 MCH 30.9 pg (26.0-30.0) H 11/20/17 06:10 MCHC Differential 33.0 pg (28.0-36.0) 11/20/17 06:10 RDW 13.6 % (11.5-20.0) 11/20/17 06:10 Plt Count 362 Th/cmm (150-400) 11/20/17 06:10 MPV 8.0 fl 11/20/17 06:10 Neutrophils % 63.9 % (40.0-80.0) 11/20/17 06:10 Lymphocytes % 25.2 % (20.0-50.0) 11/20/17 06:10 Monocytes % 8.5 % (2.0-10.0) 11/20/17 06:10 Eosinophils % 1.9 % (0.0-5.0) 11/20/17 06:10 Basophils % 0.5 % (0.0-2.0) 11/20/17 06:10 Sodium 139 mEq/L (136-145) 11/20/17 06:10 Potassium 3.9 mEq/L (3.5-5.1) 11/20/17 06:10 Chloride 106 mEq/L (98-107) 11/20/17 06:10 Carbon Dioxide 24.3 mEq/L (21.0-31.0) 11/20/17 06:10 Anion Gap 12.6 (7.0-16.0) 11/20/17 06:10 BUN 18 mg/dL (7-25) 11/20/17 06:10 Creatinine 0.9 mg/dL (0.7-1.3) 11/20/17 06:10 Est GFR ( Amer) > 60.0 ml/min (>90) 11/20/17 06:10 Est GFR (Non-Af Amer) > 60.0 ml/min 11/20/17 06:10 BUN/Creatinine Ratio 20.0 11/20/17 06:10 Glucose 85 mg/dL (70-105) 11/20/17 06:10 Hemoglobin A1c % 6.2 % (4.0-6.0) H 11/15/17 17:40 Calcium 8.8 mg/dL (8.6-10.3) 11/20/17 06:10 Total Bilirubin 0.3 mg/dL (0.3-1.0) 11/20/17 06:10 AST 14 U/L (13-39) 11/20/17 06:10 ALT 14 U/L (7-52) 11/20/17 06:10 Alkaline Phosphatase 35 U/L (34-104) 11/20/17 06:10 Troponin I < 0.01 ng/mL (0.01-0.05) L 11/15/17 17:40 Total Protein 6.3 gm/dL (6.0-8.3) 11/20/17 06:10 Albumin 3.6 gm/dL (4.2-5.5) L 11/20/17 06:10 Globulin 2.7 gm/dL 11/20/17 06:10 Albumin/Globulin Ratio 1.3 (1.0-1.8) 11/20/17 06:10 Triglycerides 182 mg/dL (<150) H 11/15/17 17:40 Cholesterol 171 mg/dL (<200) 11/15/17 17:40 LDL Cholesterol Direct 92 mg/dL (75-193) 11/15/17 17:40 HDL Cholesterol 40 mg/dL (23-92) 11/15/17 17:40 TSH 1.84 uIU/ml (0.34-5.60) 11/15/17 17:40 Urine Source CLEAN C 11/15/17 18:15 Urine Color YELLOW 11/15/17 18:15 Urine Clarity CLEAR (CLEAR) 11/15/17 18:15 Urine pH 6.0 (4.6 - 8.0) 11/15/17 18:15 Ur Specific [place] 1.020 (1.005-1.030) 11/15/17 18:15 Urine Protein NEGATIVE mg/dL (NEGATIVE) 11/15/17 18:15 Urine Glucose (UA) NEGATIVE mg/dL (NEGATIVE) 11/15/17 18:15 Urine Ketones NEGATIVE mg/dL (NEGATIVE) 11/15/17 18:15 Urine Blood SMALL (NEGATIVE) H 11/15/17 18:15 Urine Nitrate NEGATIVE (NEGATIVE) 11/15/17 18:15 Urine Bilirubin NEGATIVE (NEGATIVE) 11/15/17 18:15 Urine Urobilinogen 0.2 E.U./dL (0.2 - 1.0) 11/15/17 18:15 Ur Leukocyte Esterase NEGATIVE (NEGATIVE) 11/15/17 18:15 Urine RBC 2-5 /hpf (0-5) H 11/15/17 18:15 Urine WBC 0-2 /hpf (0-5) 11/15/17 18:15 Ur Epithelial Cells FEW /lpf (FEW) 11/15/17 18:15 Urine Bacteria FEW /hpf (NONE SEEN) 11/15/17 18:15 Salicylates < 25.0 mg/L (30.0-100.0) L 11/15/17 17:40 Urine Opiates Screen NEGATIVE (NEGATIVE) 11/15/17 18:15 Urine Methadone Screen NEGATIVE (NEGATIVE) 11/15/17 18:15 Acetaminophen < 10.0 ug/mL (10.0-30.0) L 11/15/17 17:40 Ur Barbiturates Screen NEGATIVE (NEGATIVE) 11/15/17 18:15 Valproic Acid 46.8 ug/mL (50.0-100.0) L 11/18/17 06:52 Ur Tricyclics Screen NEGATIVE (NEGATIVE) 11/15/17 18:15 Ur Phencyclidine Scrn NEGATIVE (NEGATIVE) 11/15/17 18:15 Amphetamines Screen NEGATIVE (NEGATIVE) 11/15/17 18:15 U Methamphetamines Scrn NEGATIVE (NEGATIVE) 11/15/17 18:15 U Benzodiazepines Scrn NEGATIVE (NEGATIVE) 11/15/17 18:15 U Cocaine Metab Screen NEGATIVE (NEGATIVE) 11/15/17 18:15 U Cannabinoids Screen NEGATIVE (NEGATIVE) 11/15/17 18:15 Ethyl Alcohol < 10 mg/dL (0-10) 11/15/17 17:40 RPR NONREACTIVE (NONREACTIVE) 11/15/17 17:40 - Physical Exam Vitals and I&O: Vital Signs Temp 98.9 F 11/20/17 15:36 Pulse 76 11/20/17 15:36 Resp 18 11/20/17 15:36 BP 94/63 11/20/17 15:36 Pulse Ox 97 11/20/17 15:36 Intake & Output 11/19/17 11/20/17 11/20/17 18:59 06:59 18:59 Intake Total 800 420 Balance 800 420 Intake: Oral 800 420 Other: # Voids 3 2 # Bowel Movements 0 0 Active Medications: Current Medications Acetaminophen (Tylenol) 650 mg PO Q4HR PRN PRN Reason: Mild Pain / Temp above 100 Stop: 01/14/18 20:58 Last Admin: 11/17/17 15:35 Dose: 650 mg Al Hydrox/Mg Hydrox/Simethicone (Maalox) 30 ml PO Q4HR PRN PRN Reason: GI DISTRESS Stop: 01/14/18 20:55 Atorvastatin Calcium (Lipitor) 10 mg PO HS [facility]; Protocol Stop: 01/14/18 20:59 Last Admin: 11/19/17 21:00 Dose: 10 mg Clonazepam (Klonopin) 0.5 mg PO BID PRN; Protocol PRN Reason: Anxiety Stop: 01/14/18 20:47 Last Admin: 11/19/17 16:18 Dose: 0.5 mg Divalproex Sodium (Depakote Sprinkle) 500 mg PO HS HARITHA Stop: 01/14/18 22:59 Last Admin: 11/19/17 21:00 Dose: 500 mg Divalproex Sodium (Depakote Dr) 500 mg PO DAILY HARITHA Stop: 01/20/18 08:59 Magnesium Hydroxide (Milk Of Magnesia) 30 ml PO HS PRN PRN Reason: Constipation Mupirocin (Bactroban Oint) 1 appl NS BID HRAITHA Stop: 11/22/17 09:01 Last Admin: 11/20/17 10:20 Dose: 1 appl Olanzapine (Zyprexa Zydis) 10 mg PO HS [facility]; Protocol Stop: 01/14/18 20:59 Last Admin: 11/19/17 21:00 Dose: 10 mg Oxcarbazepine (Trileptal) 300 mg PO BID HARITHA; Protocol Stop: 01/15/18 08:59 Last Admin: 11/20/17 09:42 Dose: 300 mg Trimethoprim/Sulfamethoxazole (Bactrim Ds) 1 tab PO BID HARITHA Stop: 11/30/17 09:59 Zolpidem Tartrate (Ambien) 5 mg PO HS PRN PRN Reason: Insomnia Stop: 01/14/18 20:55 Last Admin: 11/19/17 21:16 Dose: 5 mg General: Alert, Other (Confused) HEENT: Atraumatic Neck: Supple Cardiovascular: Regular rate Lungs: Clear to auscultation Abdomen: Bowel sounds, Soft Extremities: Other (No edema) Neurological: Normal gait Psych/Mental Status: Other (Confused not oriented. ) Nutritional Asmnt/Malnutr-PDOC - Dietary Evaluation Malnutrition Findings (Please click <Entered> for more info): Nutritional Asmnt/Malnutrition Start: 11/18/17 10: 16 Text: Status: Complete Freq: Protocol: Document 11/18/17 10:16 GISSEL (Rec: 11/18/17 10:20 GISSEL [id number]) Nutritional Asmnt/Malnutrition Patient General Information Diagnosis psychosis Pertinent Medical Hx/Surgical Hx schizophrenia, dementia, hyperlipidemia Subjective Information Pt asleep at time of visit Current Diet Order/ Nutrition Support DAYAMI Pertinent Medications Maalox, lipitor, MOM Pertinent Labs 11/15: Na 138, K 4.1, Cl 105, CO2 23.9, BUN 19, Cr 1.1, Ca 9 .1, glucose 122 Nutritional Hx/Data Height 1.83 m Height (Calculated Centimeters) 182.9 Current Weight (lbs) 79.379 kg Weight (Calculated Kilograms) 79.4 Weight (Calculated Grams) 14222.7 Body Mass Index (BMI) 23.7 Weight Status Approriate GI Symptoms GI Symptoms None Last BM 11/17 Cultural/Ethnic/Tenriism Belief unknown Usual diet at home Cardiac Skin Integrity/Comment: carol score 17, intact Estimated Nutritional Goals BEE in Kcals: Using Current wt Calories/Kcals/Kg 25-30kcals/kg Kcals Calculated 1974-2369kcals/day Protein: Using Current wt Protein g/k-1.2g/kg Protein Calculated 79-95g/day Fluid: ml 1975-2370ml/day (1ml/kcal) Nutritional Problem 1. Problem Problem No nutrition diagnosis at this time Intervention/Recommendation Comments Recommend continuing DAYAMI diet Expected Outcomes/Goals Expected Outcomes/Goals PO intake >75% of meals
[2017-11-20] MEDS: Sulfamethoxazole/TMP 800/160mg Tab PO SCH (16:23)
[2017-11-20] MEDS: Atorvastatin Calcium 10 MG TAB PO SCH (20:13)
[2017-11-20] MEDS: OLANZapine 10 mg Oral Disintegrating Tab PO SCH (20:14)
--- NOTE | 2017-11-21 02:09 | Progress Notes ---
DATE: 11/20/2017 PSYCHIATRIC PROGRESS NOTE PROGRESS ON THE UNIT: Staff was spoken to. The patient is interviewed. Mood is noted to be irritable. Affect is constricted. The patient's coping skills are noted to be still poor. Insight and judgment are also noted to be still impaired. No side effects to the medications are noted. The patient is currently on olanzapine and divalproex acid along with oxcarbazepine and has been able to tolerate. No seizure episodes are noted, but the patient continues to be disheveled and paranoid. ASSESSMENT: The patient is still psychotic. PLAN: To continue the patient with current medications. I encouraged the patient to verbalize the concerns rather than to act out. JOB# [id number]
[2017-11-21] MEDS: Sulfamethoxazole/TMP 800/160mg Tab PO SCH ×2 (08:47→16:26)
--- NOTE | 2017-11-21 09:09 | General Progress Note ---
Subjective - Review of Systems Service Date: 11/21/17 Subjective: I am better. Objective - Results Result Diagrams: 11/20/17 06:10 11/20/17 06:10 Recent Labs: Laboratory Last Values WBC 13.5 Th/cmm (4.8-10.8) H 11/20/17 06:10 RBC 4.44 Mil/cmm (4.30-5.70) 11/20/17 06:10 Hgb 13.7 gm/dL (12-16) 11/20/17 06:10 Hct 41.6 % (41.0-60) 11/20/17 06:10 MCV 93.7 fl (80-99) 11/20/17 06:10 MCH 30.9 pg (26.0-30.0) H 11/20/17 06:10 MCHC Differential 33.0 pg (28.0-36.0) 11/20/17 06:10 RDW 13.6 % (11.5-20.0) 11/20/17 06:10 Plt Count 362 Th/cmm (150-400) 11/20/17 06:10 MPV 8.0 fl 11/20/17 06:10 Neutrophils % 63.9 % (40.0-80.0) 11/20/17 06:10 Lymphocytes % 25.2 % (20.0-50.0) 11/20/17 06:10 Monocytes % 8.5 % (2.0-10.0) 11/20/17 06:10 Eosinophils % 1.9 % (0.0-5.0) 11/20/17 06:10 Basophils % 0.5 % (0.0-2.0) 11/20/17 06:10 Sodium 139 mEq/L (136-145) 11/20/17 06:10 Potassium 3.9 mEq/L (3.5-5.1) 11/20/17 06:10 Chloride 106 mEq/L (98-107) 11/20/17 06:10 Carbon Dioxide 24.3 mEq/L (21.0-31.0) 11/20/17 06:10 Anion Gap 12.6 (7.0-16.0) 11/20/17 06:10 BUN 18 mg/dL (7-25) 11/20/17 06:10 Creatinine 0.9 mg/dL (0.7-1.3) 11/20/17 06:10 Est GFR ( Amer) > 60.0 ml/min (>90) 11/20/17 06:10 Est GFR (Non-Af Amer) > 60.0 ml/min 11/20/17 06:10 BUN/Creatinine Ratio 20.0 11/20/17 06:10 Glucose 85 mg/dL (70-105) 11/20/17 06:10 Hemoglobin A1c % 6.2 % (4.0-6.0) H 11/15/17 17:40 Calcium 8.8 mg/dL (8.6-10.3) 11/20/17 06:10 Total Bilirubin 0.3 mg/dL (0.3-1.0) 11/20/17 06:10 AST 14 U/L (13-39) 11/20/17 06:10 ALT 14 U/L (7-52) 11/20/17 06:10 Alkaline Phosphatase 35 U/L (34-104) 11/20/17 06:10 Troponin I < 0.01 ng/mL (0.01-0.05) L 11/15/17 17:40 Total Protein 6.3 gm/dL (6.0-8.3) 11/20/17 06:10 Albumin 3.6 gm/dL (4.2-5.5) L 11/20/17 06:10 Globulin 2.7 gm/dL 11/20/17 06:10 Albumin/Globulin Ratio 1.3 (1.0-1.8) 11/20/17 06:10 Triglycerides 182 mg/dL (<150) H 11/15/17 17:40 Cholesterol 171 mg/dL (<200) 11/15/17 17:40 LDL Cholesterol Direct 92 mg/dL (75-193) 11/15/17 17:40 HDL Cholesterol 40 mg/dL (23-92) 11/15/17 17:40 TSH 1.84 uIU/ml (0.34-5.60) 11/15/17 17:40 Urine Source CLEAN C 11/15/17 18:15 Urine Color YELLOW 11/15/17 18:15 Urine Clarity CLEAR (CLEAR) 11/15/17 18:15 Urine pH 6.0 (4.6 - 8.0) 11/15/17 18:15 Ur Specific [place] 1.020 (1.005-1.030) 11/15/17 18:15 Urine Protein NEGATIVE mg/dL (NEGATIVE) 11/15/17 18:15 Urine Glucose (UA) NEGATIVE mg/dL (NEGATIVE) 11/15/17 18:15 Urine Ketones NEGATIVE mg/dL (NEGATIVE) 11/15/17 18:15 Urine Blood SMALL (NEGATIVE) H 11/15/17 18:15 Urine Nitrate NEGATIVE (NEGATIVE) 11/15/17 18:15 Urine Bilirubin NEGATIVE (NEGATIVE) 11/15/17 18:15 Urine Urobilinogen 0.2 E.U./dL (0.2 - 1.0) 11/15/17 18:15 Ur Leukocyte Esterase NEGATIVE (NEGATIVE) 11/15/17 18:15 Urine RBC 2-5 /hpf (0-5) H 11/15/17 18:15 Urine WBC 0-2 /hpf (0-5) 11/15/17 18:15 Ur Epithelial Cells FEW /lpf (FEW) 11/15/17 18:15 Urine Bacteria FEW /hpf (NONE SEEN) 11/15/17 18:15 Salicylates < 25.0 mg/L (30.0-100.0) L 11/15/17 17:40 Urine Opiates Screen NEGATIVE (NEGATIVE) 11/15/17 18:15 Urine Methadone Screen NEGATIVE (NEGATIVE) 11/15/17 18:15 Acetaminophen < 10.0 ug/mL (10.0-30.0) L 11/15/17 17:40 Ur Barbiturates Screen NEGATIVE (NEGATIVE) 11/15/17 18:15 Valproic Acid 46.8 ug/mL (50.0-100.0) L 11/18/17 06:52 Ur Tricyclics Screen NEGATIVE (NEGATIVE) 11/15/17 18:15 Ur Phencyclidine Scrn NEGATIVE (NEGATIVE) 11/15/17 18:15 Amphetamines Screen NEGATIVE (NEGATIVE) 11/15/17 18:15 U Methamphetamines Scrn NEGATIVE (NEGATIVE) 11/15/17 18:15 U Benzodiazepines Scrn NEGATIVE (NEGATIVE) 11/15/17 18:15 U Cocaine Metab Screen NEGATIVE (NEGATIVE) 11/15/17 18:15 U Cannabinoids Screen NEGATIVE (NEGATIVE) 11/15/17 18:15 Ethyl Alcohol < 10 mg/dL (0-10) 11/15/17 17:40 RPR NONREACTIVE (NONREACTIVE) 11/15/17 17:40 - Physical Exam Vitals and I&O: Vital Signs Temp 99.8 F 11/21/17 06:10 Pulse 72 11/21/17 06:10 Resp 20 11/21/17 06:10 BP 118/73 11/21/17 06:10 Pulse Ox 95 11/21/17 06:10 Intake & Output 11/20/17 11/21/17 11/21/17 18:59 06:59 18:59 Intake Total 2400 480 Balance 2400 480 Intake: Oral 2400 480 Other: # Voids 4 3 # Bowel Movements 1 0 Active Medications: Current Medications Acetaminophen (Tylenol) 650 mg PO Q4HR PRN PRN Reason: Mild Pain / Temp above 100 Stop: 01/14/18 20:58 Last Admin: 11/17/17 15:35 Dose: 650 mg Al Hydrox/Mg Hydrox/Simethicone (Maalox) 30 ml PO Q4HR PRN PRN Reason: GI DISTRESS Stop: 01/14/18 20:55 Atorvastatin Calcium (Lipitor) 10 mg PO HS HARITHA; Protocol Stop: 01/14/18 20:59 Last Admin: 11/20/17 20:13 Dose: 10 mg Clonazepam (Klonopin) 0.5 mg PO BID PRN; Protocol PRN Reason: Anxiety Stop: 01/14/18 20:47 Last Admin: 11/19/17 16:18 Dose: 0.5 mg Divalproex Sodium (Depakote Sprinkle) 500 mg PO HS HARITHA Stop: 01/14/18 22:59 Last Admin: 11/20/17 20:13 Dose: 500 mg Divalproex Sodium (Depakote Dr) 500 mg PO DAILY HARITHA Stop: 01/20/18 08:59 Last Admin: 11/21/17 08:47 Dose: 500 mg Magnesium Hydroxide (Milk Of Magnesia) 30 ml PO HS PRN PRN Reason: Constipation Mupirocin (Bactroban Oint) 1 appl NS BID HARITHA Stop: 11/22/17 09:01 Last Admin: 11/21/17 08:47 Dose: 1 appl Olanzapine (Zyprexa Zydis) 10 mg PO HS HARITHA; Protocol Stop: 01/14/18 20:59 Last Admin: 11/20/17 20:14 Dose: 10 mg Oxcarbazepine (Trileptal) 300 mg PO BID HARITHA; Protocol Stop: 01/15/18 08:59 Last Admin: 11/21/17 08:46 Dose: 300 mg Trimethoprim/Sulfamethoxazole (Bactrim Ds) 1 tab PO BID HARITHA Stop: 11/30/17 09:59 Last Admin: 11/21/17 08:47 Dose: 1 tab Zolpidem Tartrate (Ambien) 5 mg PO HS PRN PRN Reason: Insomnia Stop: 01/14/18 20:55 Last Admin: 11/20/17 20:14 Dose: 5 mg General: Alert, Other (Confused) HEENT: Atraumatic Neck: Supple Cardiovascular: Regular rate Lungs: Clear to auscultation Abdomen: Bowel sounds, Soft Extremities: Other (No edema) Neurological: Normal gait Psych/Mental Status: Other (Confused not oriented. ) Assessment/Plan - Assessment Assessment: Patient is awake, alert in no acute distress. WBC is increased, he refer odynophagia. Dx Increased in agitation, Dementia, schizophrenia, hyperlipidemia , Pharyngitis. - Plan Plan: Patient is under psychiatric care. Bactrim id added. She is continue with SNF meds. Nutritional Asmnt/Malnutr-PDOC - Dietary Evaluation Malnutrition Findings (Please click <Entered> for more info): Nutritional Asmnt/Malnutrition Start: 11/18/17 10: 16 Text: Status: Complete Freq: Protocol: Document 11/18/17 10:16 GISSEL (Rec: 11/18/17 10:20 GISSEL [email or web address] [email or web address]) Nutritional Asmnt/Malnutrition Patient General Information Diagnosis psychosis Pertinent Medical Hx/Surgical Hx schizophrenia, dementia, hyperlipidemia Subjective Information Pt asleep at time of visit Current Diet Order/ Nutrition Support DAYAMI Pertinent Medications Maalox, lipitor, MOM Pertinent Labs 11/15: Na 138, K 4.1, Cl 105, CO2 23.9, BUN 19, Cr 1.1, Ca 9 .1, glucose 122 Nutritional Hx/Data Height 1.83 m Height (Calculated Centimeters) 182.9 Current Weight (lbs) 79.379 kg Weight (Calculated Kilograms) 79.4 Weight (Calculated Grams) 46197.7 Body Mass Index (BMI) 23.7 Weight Status Approriate GI Symptoms GI Symptoms None Last BM / Cultural/Ethnic/Taoist Belief unknown Usual diet at home Cardiac Skin Integrity/Comment: carol score 17, intact Estimated Nutritional Goals BEE in Kcals: Using Current wt Calories/Kcals/Kg 25-30kcals/kg Kcals Calculated 1974-2369kcals/day Protein: Using Current wt Protein g/k-1.2g/kg Protein Calculated 79-95g/day Fluid: ml 1974-2369ml/day (1ml/kcal) Nutritional Problem 1. Problem Problem No nutrition diagnosis at this time Intervention/Recommendation Comments Recommend continuing DAYAMI diet Expected Outcomes/Goals Expected Outcomes/Goals PO intake >75% of meals
[2017-11-21] MEDS ORDERED: Probiotic Screen MC PRN (12:00)
[2017-11-21] MEDS: Lactobacillus Rhamnosus GG 15 Billion CFU CAP.SPRINK PO SCH (15:00)
[2017-11-21] MEDS: Atorvastatin Calcium 10 MG TAB PO SCH (21:07)
[2017-11-21] MEDS: OLANZapine 10 mg Oral Disintegrating Tab PO SCH (21:08)
--- NOTE | 2017-11-22 00:39 | Progress Notes ---
DATE: 11/21/2017 SUBJECTIVE: Staff was spoken to. The patient is interviewed. Mood is noted to be irritable. Affect is constricted. Insight and judgment at this time are noted to be impaired. Impulse control is noted to be limited. The patient has been presenting with the somatic complaints. One minute, the patient is stating that he has been having problems in the stomach and the patient has been given Mylanta, the next minute, the patient is coming back and then stating that he has been having the sharp pain in the chest and the patient has been placed on the medical board ____ to take a look at the patient's complaints. The patient continues to be very paranoid and impulsive and has been very reluctant to take a shower. ASSESSMENT: The patient is still psychotic. PLAN: To continue the patient with the supportive therapy, encouraged the patient to verbalize the concerns rather than to act out. Please note that the patient is currently on ____ acid and olanzapine and has been able to tolerate the medication. Plan to continue the patient with the supportive therapy and followup. JOB# [id number]
[2017-11-22 07:54] LABS: % BASOPHILS 0.5 % (0.0-2.0); % EOSINOPHILS 1.1 % (0.0-5.0); % LYMPHOCYTES 15.9 % (20.0-50.0); % MONOCYTES 10.8 % (2.0-10.0); % NEUTROPHILS 71.7 % (40.0-80.0); EOSINOPHILE ABSOLUTE 0.1 Th/cmm (0.1-0.4); HEMATOCRIT 43.1 % (41.0-60); HEMOGLOBIN 14.4 gm/dL (12-16); LYMPHOCYTE ABSOLUTE 1.4 Th/cmm (1.5-3.0); MEAN CELL VOLUME 94.3 fl (80-99); MEAN CORPUSCULAR HEMOGLOBIN 31.4 pg (26.0-30.0); MEAN CORPUSCULAR HGB CONC 33.3 pg (28.0-36.0); NEUTROPHILE ABSOLUTE 6.4 Th/cmm (1.8-8.0); PLATELET COUNT 353 Th/cmm (150-400); RED BLOOD COUNT 4.57 Mil/cmm (4.30-5.70); RED CELL DISTRIBUTION WIDTH 13.7 % (11.5-20.0); WHITE BLOOD COUNT 8.9 Th/cmm (4.8-10.8)
[2017-11-22 08:22] LABS: ALB/GLOB RATIO 1.2 (1.0-1.8); ALBUMIN 3.7 gm/dL (4.2-5.5); ALKALINE PHOSPHATASE 43 U/L (34-104); ANION GAP 11.7 (7.0-16.0); BILIRUBIN,TOTAL 0.3 mg/dL (0.3-1.0); BUN - UREA NITROGEN 16 mg/dL (7-25); CALCIUM SERUM 8.8 mg/dL (8.6-10.3); CARBON DIOXIDE 24.4 mEq/L (21.0-31.0); CHLORIDE 106 mEq/L (98-107); CREATININE - SERUM 1.2 mg/dL (0.7-1.3); GFR AFRICAN-AMERICAN > 60.0 ml/min (>90); GFR NON AFRICAN-AMERICAN > 60.0 ml/min; GLUCOSE 86 mg/dL (70-105); POTASSIUM SERUM 4.1 mEq/L (3.5-5.1); SGOT 13 U/L (13-39); SGPT/ALT 11 U/L (7-52); SODIUM SERUM 138 mEq/L (136-145); TOTAL PROTEIN,SERUM 6.7 gm/dL (6.0-8.3)
--- NOTE | 2017-11-22 09:00 | General Progress Note ---
Subjective - Review of Systems Events since last encounter: patient still psychotic no signs of pain Objective - Results Result Diagrams: 11/22/17 07:30 11/22/17 07:30 Recent Labs: Laboratory Last Values WBC 8.9 Th/cmm (4.8-10.8) 11/22/17 07:30 RBC 4.57 Mil/cmm (4.30-5.70) 11/22/17 07:30 Hgb 14.4 gm/dL (12-16) 11/22/17 07:30 Hct 43.1 % (41.0-60) 11/22/17 07:30 MCV 94.3 fl (80-99) 11/22/17 07:30 MCH 31.4 pg (26.0-30.0) H 11/22/17 07:30 MCHC Differential 33.3 pg (28.0-36.0) 11/22/17 07:30 RDW 13.7 % (11.5-20.0) 11/22/17 07:30 Plt Count 353 Th/cmm (150-400) 11/22/17 07:30 MPV 8.0 fl 11/22/17 07:30 Neutrophils % 71.7 % (40.0-80.0) 11/22/17 07:30 Lymphocytes % 15.9 % (20.0-50.0) L 11/22/17 07:30 Monocytes % 10.8 % (2.0-10.0) H 11/22/17 07:30 Eosinophils % 1.1 % (0.0-5.0) 11/22/17 07:30 Basophils % 0.5 % (0.0-2.0) 11/22/17 07:30 Sodium 138 mEq/L (136-145) 11/22/17 07:30 Potassium 4.1 mEq/L (3.5-5.1) 11/22/17 07:30 Chloride 106 mEq/L (98-107) 11/22/17 07:30 Carbon Dioxide 24.4 mEq/L (21.0-31.0) 11/22/17 07:30 Anion Gap 11.7 (7.0-16.0) 11/22/17 07:30 BUN 16 mg/dL (7-25) 11/22/17 07:30 Creatinine 1.2 mg/dL (0.7-1.3) 11/22/17 07:30 Est GFR ( Amer) > 60.0 ml/min (>90) 11/22/17 07:30 Est GFR (Non-Af Amer) > 60.0 ml/min 11/22/17 07:30 BUN/Creatinine Ratio 13.3 11/22/17 07:30 Glucose 86 mg/dL (70-105) 11/22/17 07:30 Hemoglobin A1c % 6.2 % (4.0-6.0) H 11/15/17 17:40 Calcium 8.8 mg/dL (8.6-10.3) 11/22/17 07:30 Total Bilirubin 0.3 mg/dL (0.3-1.0) 11/22/17 07:30 AST 13 U/L (13-39) 11/22/17 07:30 ALT 11 U/L (7-52) 11/22/17 07:30 Alkaline Phosphatase 43 U/L (34-104) 11/22/17 07:30 Troponin I < 0.01 ng/mL (0.01-0.05) L 11/15/17 17:40 Total Protein 6.7 gm/dL (6.0-8.3) 11/22/17 07:30 Albumin 3.7 gm/dL (4.2-5.5) L 11/22/17 07:30 Globulin 3.0 gm/dL 11/22/17 07:30 Albumin/Globulin Ratio 1.2 (1.0-1.8) 11/22/17 07:30 Triglycerides 182 mg/dL (<150) H 11/15/17 17:40 Cholesterol 171 mg/dL (<200) 11/15/17 17:40 LDL Cholesterol Direct 92 mg/dL (75-193) 11/15/17 17:40 HDL Cholesterol 40 mg/dL (23-92) 11/15/17 17:40 TSH 1.84 uIU/ml (0.34-5.60) 11/15/17 17:40 Urine Source CLEAN C 11/15/17 18:15 Urine Color YELLOW 11/15/17 18:15 Urine Clarity CLEAR (CLEAR) 11/15/17 18:15 Urine pH 6.0 (4.6 - 8.0) 11/15/17 18:15 Ur Specific [place] 1.020 (1.005-1.030) 11/15/17 18:15 Urine Protein NEGATIVE mg/dL (NEGATIVE) 11/15/17 18:15 Urine Glucose (UA) NEGATIVE mg/dL (NEGATIVE) 11/15/17 18:15 Urine Ketones NEGATIVE mg/dL (NEGATIVE) 11/15/17 18:15 Urine Blood SMALL (NEGATIVE) H 11/15/17 18:15 Urine Nitrate NEGATIVE (NEGATIVE) 11/15/17 18:15 Urine Bilirubin NEGATIVE (NEGATIVE) 11/15/17 18:15 Urine Urobilinogen 0.2 E.U./dL (0.2 - 1.0) 11/15/17 18:15 Ur Leukocyte Esterase NEGATIVE (NEGATIVE) 11/15/17 18:15 Urine RBC 2-5 /hpf (0-5) H 11/15/17 18:15 Urine WBC 0-2 /hpf (0-5) 11/15/17 18:15 Ur Epithelial Cells FEW /lpf (FEW) 11/15/17 18:15 Urine Bacteria FEW /hpf (NONE SEEN) 11/15/17 18:15 Salicylates < 25.0 mg/L (30.0-100.0) L 11/15/17 17:40 Urine Opiates Screen NEGATIVE (NEGATIVE) 11/15/17 18:15 Urine Methadone Screen NEGATIVE (NEGATIVE) 11/15/17 18:15 Acetaminophen < 10.0 ug/mL (10.0-30.0) L 11/15/17 17:40 Ur Barbiturates Screen NEGATIVE (NEGATIVE) 11/15/17 18:15 Valproic Acid 46.8 ug/mL (50.0-100.0) L 11/18/17 06:52 Ur Tricyclics Screen NEGATIVE (NEGATIVE) 11/15/17 18:15 Ur Phencyclidine Scrn NEGATIVE (NEGATIVE) 11/15/17 18:15 Amphetamines Screen NEGATIVE (NEGATIVE) 11/15/17 18:15 U Methamphetamines Scrn NEGATIVE (NEGATIVE) 11/15/17 18:15 U Benzodiazepines Scrn NEGATIVE (NEGATIVE) 11/15/17 18:15 U Cocaine Metab Screen NEGATIVE (NEGATIVE) 11/15/17 18:15 U Cannabinoids Screen NEGATIVE (NEGATIVE) 11/15/17 18:15 Ethyl Alcohol < 10 mg/dL (0-10) 11/15/17 17:40 RPR NONREACTIVE (NONREACTIVE) 11/15/17 17:40 - Physical Exam Vitals and I&O: Vital Signs Temp 98.3 F 11/22/17 06:43 Pulse 88 11/22/17 06:43 Resp 20 11/22/17 06:43 BP 132/70 11/22/17 06:43 Pulse Ox 97 11/22/17 06:43 Intake & Output 11/21/17 11/22/17 11/22/17 18:59 06:59 18:59 Intake Total 2600 240 Balance 2600 240 Intake: Oral 2600 240 Other: # Voids 6 2 # Bowel Movements 1 0 Active Medications: Current Medications Acetaminophen (Tylenol) 650 mg PO Q4HR PRN PRN Reason: Mild Pain / Temp above 100 Stop: 01/14/18 20:58 Last Admin: 11/17/17 15:35 Dose: 650 mg Al Hydrox/Mg Hydrox/Simethicone (Maalox) 30 ml PO Q4HR PRN PRN Reason: GI DISTRESS Stop: 01/14/18 20:55 Last Admin: 11/21/17 16:54 Dose: 30 ml Atorvastatin Calcium (Lipitor) 10 mg PO HS HARITHA; Protocol Stop: 01/14/18 20:59 Last Admin: 11/21/17 21:07 Dose: 10 mg Clonazepam (Klonopin) 0.5 mg PO BID PRN; Protocol PRN Reason: Anxiety Stop: 01/14/18 20:47 Last Admin: 11/21/17 16:24 Dose: 0.5 mg Divalproex Sodium (Depakote Sprinkle) 500 mg PO HS HARITHA Stop: 01/14/18 22:59 Last Admin: 11/21/17 21:09 Dose: 500 mg Divalproex Sodium (Depakote Dr) 500 mg PO DAILY HARITHA Stop: 01/20/18 08:59 Last Admin: 11/21/17 08:47 Dose: 500 mg Lactobacillus Rhamnosus (Culturelle 15b) 1 each PO DAILY HARITHA Stop: 01/20/18 13:59 Last Admin: 11/21/17 15:00 Dose: 1 each Lorazepam (Ativan) 0.5 mg PO Q4HR PRN; Protocol PRN Reason: Anxiety Stop: 12/21/17 20:26 Magnesium Hydroxide (Milk Of Magnesia) 30 ml PO HS PRN PRN Reason: Constipation Miscellaneous (Probiotic Screen) 1 ea MC PRN PRN PRN Reason: PROTOCOL Stop: 01/20/18 11:59 Mupirocin (Bactroban Oint) 1 appl NS BID HARITHA Stop: 11/22/17 09:01 Last Admin: 11/21/17 16:26 Dose: 1 appl Olanzapine (Zyprexa Zydis) 10 mg PO HS HARITHA; Protocol Stop: 01/14/18 20:59 Last Admin: 11/21/17 21:08 Dose: 10 mg Oxcarbazepine (Trileptal) 300 mg PO BID HARITHA; Protocol Stop: 01/15/18 08:59 Last Admin: 11/21/17 16:25 Dose: 300 mg Trimethoprim/Sulfamethoxazole (Bactrim Ds) 1 tab PO BID HARITHA Stop: 11/30/17 09:59 Last Admin: 11/21/17 16:26 Dose: 1 tab Zolpidem Tartrate (Ambien) 5 mg PO HS PRN PRN Reason: Insomnia Stop: 01/14/18 20:55 Last Admin: 11/21/17 21:10 Dose: 5 mg General: Alert, Other (Confused) HEENT: Atraumatic Neck: Supple Cardiovascular: Regular rate Lungs: Clear to auscultation Abdomen: Bowel sounds, Soft Extremities: Other (No edema) Neurological: Normal gait Psych/Mental Status: Other (Confused not oriented. ) Nutritional Asmnt/Malnutr-PDOC - Dietary Evaluation Malnutrition Findings (Please click <Entered> for more info): Nutritional Asmnt/Malnutrition Start: 11/18/17 10: 16 Text: Status: Complete Freq: Protocol: Document 11/18/17 10:16 GISSEL (Rec: 11/18/17 10:20 GISSEL [email or web address] [email or web address]) Nutritional Asmnt/Malnutrition Patient General Information Diagnosis psychosis Pertinent Medical Hx/Surgical Hx schizophrenia, dementia, hyperlipidemia Subjective Information Pt asleep at time of visit Current Diet Order/ Nutrition Support DAYAMI Pertinent Medications Maalox, lipitor, MOM Pertinent Labs 11/15: Na 138, K 4.1, Cl 105, CO2 23.9, BUN 19, Cr 1.1, Ca 9 .1, glucose 122 Nutritional Hx/Data Height 1.83 m Height (Calculated Centimeters) 182.9 Current Weight (lbs) 79.379 kg Weight (Calculated Kilograms) 79.4 Weight (Calculated Grams) 73614.7 Body Mass Index (BMI) 23.7 Weight Status Approriate GI Symptoms GI Symptoms None Last BM 11/17 Cultural/Ethnic/Amish Belief unknown Usual diet at home Cardiac Skin Integrity/Comment: carol score 17, intact Estimated Nutritional Goals BEE in Kcals: Using Current wt Calories/Kcals/Kg 25-30kcals/kg Kcals Calculated 1974-2369kcals/day Protein: Using Current wt Protein g/k-1.2g/kg Protein Calculated 79-95g/day Fluid: ml 1974-2369ml/day (1ml/kcal) Nutritional Problem 1. Problem Problem No nutrition diagnosis at this time Intervention/Recommendation Comments Recommend continuing DAYAMI diet Expected Outcomes/Goals Expected Outcomes/Goals PO intake >75% of meals
[2017-11-22] MEDS: Lactobacillus Rhamnosus GG 15 Billion CFU CAP.SPRINK PO SCH (09:08)
[2017-11-22] MEDS: Sulfamethoxazole/TMP 800/160mg Tab PO SCH ×2 (09:08→16:13)
--- NOTE | 2017-11-22 09:39 | Consultation ---
DATE OF CONSULTATION: 11/22/2017 INTERNAL MEDICINE CONSULTATION A 61-year-old male seen at [facility]. HISTORY OF PRESENT ILLNESS: The patient is a patient of mine, past medical history significant for COPD, hyperlipidemia, peptic ulcer disease, gastritis, arthritis, osteoporosis, coronary artery disease. SOCIAL HISTORY: Prior history of smoking. No history of drug or alcohol abuse. FAMILY HISTORY: Not available. REVIEW OF SYSTEMS: The patient occasional cough, occasional wheezing, no nausea, no vomiting. Very psychotic. Gait is unstable. PHYSICAL EXAMINATION: GENERAL: Gait is unstable. VITAL SIGNS: Stable. LUNGS: Show occasional rhonchi, occasional crepitation, no bronchial breathing. HEART: First and second heart sounds are normal. No gallops. S1, S2 present. ABDOMEN: Soft. Bowel sounds present and good. EXTREMITIES: Show arthritis. NEUROLOGIC: The patient is confused, psychotic. CURRENT MEDICAL DIAGNOSES: As I dictated above. CURRENT MEDICINES: Include Lipitor, Mylanta, Tylenol, rest of medicines as per psychiatrist. JOB# [id number]
[2017-11-22] MEDS: OLANZapine 10 mg Oral Disintegrating Tab PO SCH (21:05)
[2017-11-22] MEDS: Atorvastatin Calcium 10 MG TAB PO SCH (21:06)
--- NOTE | 2017-11-23 01:59 | Progress Notes ---
DATE: 11/22/2017 SUBJECTIVE: Staff was spoken to. The patient is interviewed. Mood is noted to be irritable. Affect is constricted. Insight and judgment at this time are noted to be still impaired. Continues to be very paranoid. The patient is isolative and withdrawn. The patient ____ continues to be very poor. No side effects to the medications are noted. ASSESSMENT: The patient is still grossly psychotic and impulsive. PLAN: To continue the patient with the Depakote and Seroquel and follow the patient with the supportive therapy. JOB# [id number]
[2017-11-23] MEDS: Sulfamethoxazole/TMP 800/160mg Tab PO SCH ×3 (10:06→11:22)
[2017-11-23] MEDS: Lactobacillus Rhamnosus GG 15 Billion CFU CAP.SPRINK PO SCH (10:06)
--- NOTE | 2017-11-23 15:44 | General Progress Note ---
Subjective - Review of Systems Subjective: patient has some cough, still psychotic Objective - Results Result Diagrams: 11/22/17 07:30 11/22/17 07:30 Recent Labs: Laboratory Last Values WBC 8.9 Th/cmm (4.8-10.8) 11/22/17 07:30 RBC 4.57 Mil/cmm (4.30-5.70) 11/22/17 07:30 Hgb 14.4 gm/dL (12-16) 11/22/17 07:30 Hct 43.1 % (41.0-60) 11/22/17 07:30 MCV 94.3 fl (80-99) 11/22/17 07:30 MCH 31.4 pg (26.0-30.0) H 11/22/17 07:30 MCHC Differential 33.3 pg (28.0-36.0) 11/22/17 07:30 RDW 13.7 % (11.5-20.0) 11/22/17 07:30 Plt Count 353 Th/cmm (150-400) 11/22/17 07:30 MPV 8.0 fl 11/22/17 07:30 Neutrophils % 71.7 % (40.0-80.0) 11/22/17 07:30 Lymphocytes % 15.9 % (20.0-50.0) L 11/22/17 07:30 Monocytes % 10.8 % (2.0-10.0) H 11/22/17 07:30 Eosinophils % 1.1 % (0.0-5.0) 11/22/17 07:30 Basophils % 0.5 % (0.0-2.0) 11/22/17 07:30 Sodium 138 mEq/L (136-145) 11/22/17 07:30 Potassium 4.1 mEq/L (3.5-5.1) 11/22/17 07:30 Chloride 106 mEq/L (98-107) 11/22/17 07:30 Carbon Dioxide 24.4 mEq/L (21.0-31.0) 11/22/17 07:30 Anion Gap 11.7 (7.0-16.0) 11/22/17 07:30 BUN 16 mg/dL (7-25) 11/22/17 07:30 Creatinine 1.2 mg/dL (0.7-1.3) 11/22/17 07:30 Est GFR ( Amer) > 60.0 ml/min (>90) 11/22/17 07:30 Est GFR (Non-Af Amer) > 60.0 ml/min 11/22/17 07:30 BUN/Creatinine Ratio 13.3 11/22/17 07:30 Glucose 86 mg/dL (70-105) 11/22/17 07:30 Hemoglobin A1c % 6.2 % (4.0-6.0) H 11/15/17 17:40 Calcium 8.8 mg/dL (8.6-10.3) 11/22/17 07:30 Total Bilirubin 0.3 mg/dL (0.3-1.0) 11/22/17 07:30 AST 13 U/L (13-39) 11/22/17 07:30 ALT 11 U/L (7-52) 11/22/17 07:30 Alkaline Phosphatase 43 U/L (34-104) 11/22/17 07:30 Troponin I < 0.01 ng/mL (0.01-0.05) L 11/15/17 17:40 Total Protein 6.7 gm/dL (6.0-8.3) 11/22/17 07:30 Albumin 3.7 gm/dL (4.2-5.5) L 11/22/17 07:30 Globulin 3.0 gm/dL 11/22/17 07:30 Albumin/Globulin Ratio 1.2 (1.0-1.8) 11/22/17 07:30 Triglycerides 182 mg/dL (<150) H 11/15/17 17:40 Cholesterol 171 mg/dL (<200) 11/15/17 17:40 LDL Cholesterol Direct 92 mg/dL (75-193) 11/15/17 17:40 HDL Cholesterol 40 mg/dL (23-92) 11/15/17 17:40 TSH 1.84 uIU/ml (0.34-5.60) 11/15/17 17:40 Urine Source CLEAN C 11/15/17 18:15 Urine Color YELLOW 11/15/17 18:15 Urine Clarity CLEAR (CLEAR) 11/15/17 18:15 Urine pH 6.0 (4.6 - 8.0) 11/15/17 18:15 Ur Specific [place] 1.020 (1.005-1.030) 11/15/17 18:15 Urine Protein NEGATIVE mg/dL (NEGATIVE) 11/15/17 18:15 Urine Glucose (UA) NEGATIVE mg/dL (NEGATIVE) 11/15/17 18:15 Urine Ketones NEGATIVE mg/dL (NEGATIVE) 11/15/17 18:15 Urine Blood SMALL (NEGATIVE) H 11/15/17 18:15 Urine Nitrate NEGATIVE (NEGATIVE) 11/15/17 18:15 Urine Bilirubin NEGATIVE (NEGATIVE) 11/15/17 18:15 Urine Urobilinogen 0.2 E.U./dL (0.2 - 1.0) 11/15/17 18:15 Ur Leukocyte Esterase NEGATIVE (NEGATIVE) 11/15/17 18:15 Urine RBC 2-5 /hpf (0-5) H 11/15/17 18:15 Urine WBC 0-2 /hpf (0-5) 11/15/17 18:15 Ur Epithelial Cells FEW /lpf (FEW) 11/15/17 18:15 Urine Bacteria FEW /hpf (NONE SEEN) 11/15/17 18:15 Salicylates < 25.0 mg/L (30.0-100.0) L 11/15/17 17:40 Urine Opiates Screen NEGATIVE (NEGATIVE) 11/15/17 18:15 Urine Methadone Screen NEGATIVE (NEGATIVE) 11/15/17 18:15 Acetaminophen < 10.0 ug/mL (10.0-30.0) L 11/15/17 17:40 Ur Barbiturates Screen NEGATIVE (NEGATIVE) 11/15/17 18:15 Valproic Acid 46.8 ug/mL (50.0-100.0) L 11/18/17 06:52 Ur Tricyclics Screen NEGATIVE (NEGATIVE) 11/15/17 18:15 Ur Phencyclidine Scrn NEGATIVE (NEGATIVE) 11/15/17 18:15 Amphetamines Screen NEGATIVE (NEGATIVE) 11/15/17 18:15 U Methamphetamines Scrn NEGATIVE (NEGATIVE) 11/15/17 18:15 U Benzodiazepines Scrn NEGATIVE (NEGATIVE) 11/15/17 18:15 U Cocaine Metab Screen NEGATIVE (NEGATIVE) 11/15/17 18:15 U Cannabinoids Screen NEGATIVE (NEGATIVE) 11/15/17 18:15 Ethyl Alcohol < 10 mg/dL (0-10) 11/15/17 17:40 RPR NONREACTIVE (NONREACTIVE) 11/15/17 17:40 - Physical Exam Vitals and I&O: Vital Signs Temp 97.6 F 11/22/17 20:14 Pulse 96 11/22/17 20:14 Resp 18 11/23/17 08:00 BP 107/84 11/22/17 20:14 Pulse Ox 97 11/22/17 20:14 Intake & Output 11/22/17 11/23/17 11/23/17 18:59 06:59 18:59 Intake Total 800 Balance 800 Intake: Oral 800 Other: # Voids 2 # Bowel Movements 0 Active Medications: Current Medications Acetaminophen (Tylenol) 650 mg PO Q4HR PRN PRN Reason: Mild Pain / Temp above 100 Stop: 01/14/18 20:58 Last Admin: 11/17/17 15:35 Dose: 650 mg Al Hydrox/Mg Hydrox/Simethicone (Maalox) 30 ml PO Q4HR PRN PRN Reason: GI DISTRESS Stop: 01/14/18 20:55 Last Admin: 11/21/17 16:54 Dose: 30 ml Atorvastatin Calcium (Lipitor) 10 mg PO HS HARITHA; Protocol Stop: 01/14/18 20:59 Last Admin: 11/22/17 21:06 Dose: 10 mg Divalproex Sodium (Depakote Sprinkle) 500 mg PO HS HARITHA Stop: 01/14/18 22:59 Last Admin: 11/22/17 21:05 Dose: 500 mg Divalproex Sodium (Depakote Dr) 500 mg PO DAILY HARITHA Stop: 01/20/18 08:59 Last Admin: 11/23/17 10:06 Dose: 500 mg Lactobacillus Rhamnosus (Culturelle 15b) 1 each PO DAILY HARITHA Stop: 01/20/18 13:59 Last Admin: 11/23/17 10:06 Dose: 1 each Lorazepam (Ativan) 0.5 mg PO Q4HR PRN; Protocol PRN Reason: Anxiety Stop: 12/21/17 20:26 Last Admin: 11/23/17 11:23 Dose: 0.5 mg Magnesium Hydroxide (Milk Of Magnesia) 30 ml PO HS PRN PRN Reason: Constipation Miscellaneous (Probiotic Screen) 1 ea MC PRN PRN PRN Reason: PROTOCOL Stop: 01/20/18 11:59 Olanzapine (Zyprexa Zydis) 10 mg PO HS HARITHA; Protocol Stop: 01/14/18 20:59 Last Admin: 11/22/17 21:05 Dose: 10 mg Oxcarbazepine (Trileptal) 300 mg PO BID HARITHA; Protocol Stop: 01/15/18 08:59 Last Admin: 11/23/17 10:06 Dose: 300 mg Trimethoprim/Sulfamethoxazole (Bactrim Ds) 1 tab PO BID HARITHA Stop: 11/30/17 09:59 Last Admin: 11/23/17 11:22 Dose: 1 tab General: Alert, Other (Confused) HEENT: Atraumatic Neck: Supple Cardiovascular: Regular rate Lungs: Clear to auscultation Abdomen: Bowel sounds, Soft Extremities: Other (No edema) Psych/Mental Status: Other (Confused not oriented. ) Assessment/Plan - Assessment Assessment: COPD HLD peptic ulcer disease gastritis OA Osteoporosis CAD - Plan Plan: CPM will monitor Nutritional Asmnt/Malnutr-PDOC - Dietary Evaluation Malnutrition Findings (Please click <Entered> for more info): Nutritional Asmnt/Malnutrition Start: 11/18/17 10: 16 Text: Status: Complete Freq: Protocol: Document 11/18/17 10:16 GISSEL (Rec: 11/18/17 10:20 GISSEL [id number] [email or web address]) Nutritional Asmnt/Malnutrition Patient General Information Diagnosis psychosis Pertinent Medical Hx/Surgical Hx schizophrenia, dementia, hyperlipidemia Subjective Information Pt asleep at time of visit Current Diet Order/ Nutrition Support DAYAMI Pertinent Medications Maalox, lipitor, MOM Pertinent Labs 11/15: Na 138, K 4.1, Cl 105, CO2 23.9, BUN 19, Cr 1.1, Ca 9 .1, glucose 122 Nutritional Hx/Data Height 1.83 m Height (Calculated Centimeters) 182.9 Current Weight (lbs) 79.379 kg Weight (Calculated Kilograms) 79.4 Weight (Calculated Grams) 20534.7 Body Mass Index (BMI) 23.7 Weight Status Approriate GI Symptoms GI Symptoms None Last BM 11/17 Cultural/Ethnic/Restorationist Belief unknown Usual diet at home Cardiac Skin Integrity/Comment: carol score 17, intact Estimated Nutritional Goals BEE in Kcals: Using Current wt Calories/Kcals/Kg 25-30kcals/kg Kcals Calculated 1974-2369kcals/day Protein: Using Current wt Protein g/k-1.2g/kg Protein Calculated 79-95g/day Fluid: ml 1974-2369ml/day (1ml/kcal) Nutritional Problem 1. Problem Problem No nutrition diagnosis at this time Intervention/Recommendation Comments Recommend continuing DAYAMI diet Expected Outcomes/Goals Expected Outcomes/Goals PO intake >75% of meals
--- NOTE | 2017-11-23 18:04 | Progress Notes ---
DATE: 11/23/2017 INTERNAL MEDICINE CONSULTATION FOLLOWUP The patient is a 61-year-old male seen at [facility]. CURRENT MEDICAL PROBLEMS: Include COPD, coronary artery disease, peptic ulcer disease, gastritis, arthritis, hyperlipidemia. CHIEF COMPLAINT: No new symptoms. OBJECTIVE: VITAL SIGNS: Stable. LUNGS: Clear. HEART: First and second heart sounds normal. No gallop. present. ABDOMEN: Soft. Bowel sounds are present and good. EXTREMITIES: Show arthritis. NEUROLOGIC: The patient has no focal motor deficit. TREATMENT PLAN: The patient to continue current medical management. Psych consult reviewed. JOB# [id number]
[2017-11-23] MEDS: OLANZapine 10 mg Oral Disintegrating Tab PO SCH ×2 (20:32→20:35)
[2017-11-23] MEDS: Atorvastatin Calcium 10 MG TAB PO SCH (20:35)
--- NOTE | 2017-11-24 00:32 | Progress Notes ---
DATE: 11/23/2017 PSYCHIATRIC PROGRESS NOTE SUBJECTIVE: Staff was spoken to. The patient is interviewed. Mood is noted to be irritable. Affect is constricted. The patient is isolative and withdrawn. Coping skills are noted to be poor. The patient has paranoid delusions, but denies any command hallucinations. Sleep is noted to be improving. Appetite is noted to be fair at this time. ASSESSMENT: The patient is still psychotic. PLAN: To continue the patient with the supportive therapy and follow. JOB# [id number]
[2017-11-24] MEDS: Lactobacillus Rhamnosus GG 15 Billion CFU CAP.SPRINK PO SCH (08:42)
[2017-11-24] MEDS: Sulfamethoxazole/TMP 800/160mg Tab PO SCH ×2 (08:42→17:48)
[2017-11-24] MEDS: Atorvastatin Calcium 10 MG TAB PO SCH (20:14)
[2017-11-24] MEDS: OLANZapine 10 mg Oral Disintegrating Tab PO SCH (20:15)
--- NOTE | 2017-11-24 23:51 | Progress Notes ---
DATE: 11/24/2017 PSYCHIATRIC PROGRESS NOTE SUBJECTIVE: Staff was spoken to. The patient is interviewed. Mood is noted to be irritable. Affect is constricted. The patient has paranoid delusions, but denies any command hallucinations today. The patient is isolative and withdrawn. Sleep is noted to be improving. Appetite is noted to be fair at this time. ASSESSMENT: The patient is still psychotic. PLAN: To continue the patient with the current medications. Encouraged the patient to verbalize the concerns rather than act out. [facility]# [id number]
[2017-11-25] MEDS: Lactobacillus Rhamnosus GG 15 Billion CFU CAP.SPRINK PO SCH (08:53)
[2017-11-25] MEDS: Sulfamethoxazole/TMP 800/160mg Tab PO SCH ×3 (08:53→17:01)
[2017-11-25] MEDS ORDERED: Haloperidol Lactate 5 mg/mL 1mL Vial IM ONE (15:34)
[2017-11-25] MEDS ORDERED: Haloperidol Lactate 5 mg/mL 1mL Vial ONE (15:35)
[2017-11-25] MEDS: Atorvastatin Calcium 10 MG TAB PO SCH (20:18)
[2017-11-25] MEDS: OLANZapine 10 mg Oral Disintegrating Tab PO SCH (20:18)
--- NOTE | 2017-11-25 23:04 | Progress Notes ---
DATE: 11/25/2017 INTERNAL MEDICINE CONSULTATION FOLLOWUP CHIEF COMPLAINT: No new symptoms, no chest pain, no short of breath, no nausea, no vomiting. Past medicine or current medical problems include history of COPD, hypertension, coronary artery disease, peptic ulcer disease, gastritis, arthritis, hyperlipidemia. OBJECTIVE: VITAL SIGNS: Stable. LUNGS: Clear. HEART: First and second heart sounds normal. No gallop. Systolic present. ABDOMEN: Soft. Bowel sounds good. EXTREMITIES: Arthritis. NEUROLOGIC: The patient has dementia. MEDICAL DIAGNOSES: History of chronic obstructive pulmonary disease, hypertension, coronary artery disease, peptic ulcer disease, gastritis, arthritis, hyperlipidemia. Continue current medical management. Psych consult reviewed. JOB# [id number]
--- NOTE | 2017-11-26 01:26 | Progress Notes ---
DATE: 11/25/2017 SUBJECTIVE: Staff was spoken to. The patient is interviewed. Mood is noted to be irritable. Affect is constricted. The patient has been actively responding to internal stimuli. The patient has been getting agitated. The patient has to be given a dose of Haldol, Benadryl, and Ativan to calm him down. ASSESSMENT: The patient is still grossly psychotic and impulsive. PLAN: To continue the patient with supportive therapy. I encouraged the patient to verbalize the concerns rather than to act out. The patient is already on Depakote 500 mg twice a day and he is also receiving carbamazepine 300 mg b.i.d. and olanzapine 10 mg and we are going to closely monitor the patient and follow up. JOB# [id number]
[2017-11-26] MEDS: Sulfamethoxazole/TMP 800/160mg Tab PO SCH ×2 (08:32→16:37)
[2017-11-26] MEDS: Lactobacillus Rhamnosus GG 15 Billion CFU CAP.SPRINK PO SCH (08:32)
--- NOTE | 2017-11-26 10:36 | Progress Notes ---
DATE: 11/26/2017 INTERNAL MEDICINE CONSULTATION FOLLOWUP SUBJECTIVE: The patient is a 62-year-old male seen in [facility]. CURRENT MEDICAL PROBLEMS: Include COPD, hypertension, coronary artery disease, peptic ulcer disease, arthritis, osteoporosis. CHIEF COMPLAINT: No new symptoms. OBJECTIVE: VITAL SIGNS: Stable. LUNGS: Clear. HEART: First and second heart sounds normal. No gallops. S1, S2 present. ABDOMEN: Soft. Bowel sounds are present and good. EXTREMITIES: Show arthritis. NEUROLOGIC: The patient has dementia. TREATMENT/MEDICAL DIAGNOSES: Remain same. Continue current medical management. Psych consult reviewed. JOB# [id number]
--- NOTE | 2017-11-26 11:33 | General Progress Note ---
Subjective - Review of Systems Events since last encounter: patient awake alert but confused with h/o dementia Subjective: patient has some cough, still psychotic Objective - Results Result Diagrams: 11/22/17 07:30 11/22/17 07:30 Recent Labs: Laboratory Last Values WBC 8.9 Th/cmm (4.8-10.8) 11/22/17 07:30 RBC 4.57 Mil/cmm (4.30-5.70) 11/22/17 07:30 Hgb 14.4 gm/dL (12-16) 11/22/17 07:30 Hct 43.1 % (41.0-60) 11/22/17 07:30 MCV 94.3 fl (80-99) 11/22/17 07:30 MCH 31.4 pg (26.0-30.0) H 11/22/17 07:30 MCHC Differential 33.3 pg (28.0-36.0) 11/22/17 07:30 RDW 13.7 % (11.5-20.0) 11/22/17 07:30 Plt Count 353 Th/cmm (150-400) 11/22/17 07:30 MPV 8.0 fl 11/22/17 07:30 Neutrophils % 71.7 % (40.0-80.0) 11/22/17 07:30 Lymphocytes % 15.9 % (20.0-50.0) L 11/22/17 07:30 Monocytes % 10.8 % (2.0-10.0) H 11/22/17 07:30 Eosinophils % 1.1 % (0.0-5.0) 11/22/17 07:30 Basophils % 0.5 % (0.0-2.0) 11/22/17 07:30 Sodium 138 mEq/L (136-145) 11/22/17 07:30 Potassium 4.1 mEq/L (3.5-5.1) 11/22/17 07:30 Chloride 106 mEq/L (98-107) 11/22/17 07:30 Carbon Dioxide 24.4 mEq/L (21.0-31.0) 11/22/17 07:30 Anion Gap 11.7 (7.0-16.0) 11/22/17 07:30 BUN 16 mg/dL (7-25) 11/22/17 07:30 Creatinine 1.2 mg/dL (0.7-1.3) 11/22/17 07:30 Est GFR ( Amer) > 60.0 ml/min (>90) 11/22/17 07:30 Est GFR (Non-Af Amer) > 60.0 ml/min 11/22/17 07:30 BUN/Creatinine Ratio 13.3 11/22/17 07:30 Glucose 86 mg/dL (70-105) 11/22/17 07:30 Hemoglobin A1c % 6.2 % (4.0-6.0) H 11/15/17 17:40 Calcium 8.8 mg/dL (8.6-10.3) 11/22/17 07:30 Total Bilirubin 0.3 mg/dL (0.3-1.0) 11/22/17 07:30 AST 13 U/L (13-39) 11/22/17 07:30 ALT 11 U/L (7-52) 11/22/17 07:30 Alkaline Phosphatase 43 U/L (34-104) 11/22/17 07:30 Troponin I < 0.01 ng/mL (0.01-0.05) L 11/15/17 17:40 Total Protein 6.7 gm/dL (6.0-8.3) 11/22/17 07:30 Albumin 3.7 gm/dL (4.2-5.5) L 11/22/17 07:30 Globulin 3.0 gm/dL 11/22/17 07:30 Albumin/Globulin Ratio 1.2 (1.0-1.8) 11/22/17 07:30 Triglycerides 182 mg/dL (<150) H 11/15/17 17:40 Cholesterol 171 mg/dL (<200) 11/15/17 17:40 LDL Cholesterol Direct 92 mg/dL (75-193) 11/15/17 17:40 HDL Cholesterol 40 mg/dL (23-92) 11/15/17 17:40 TSH 1.84 uIU/ml (0.34-5.60) 11/15/17 17:40 Urine Source CLEAN C 11/15/17 18:15 Urine Color YELLOW 11/15/17 18:15 Urine Clarity CLEAR (CLEAR) 11/15/17 18:15 Urine pH 6.0 (4.6 - 8.0) 11/15/17 18:15 Ur Specific [place] 1.020 (1.005-1.030) 11/15/17 18:15 Urine Protein NEGATIVE mg/dL (NEGATIVE) 11/15/17 18:15 Urine Glucose (UA) NEGATIVE mg/dL (NEGATIVE) 11/15/17 18:15 Urine Ketones NEGATIVE mg/dL (NEGATIVE) 11/15/17 18:15 Urine Blood SMALL (NEGATIVE) H 11/15/17 18:15 Urine Nitrate NEGATIVE (NEGATIVE) 11/15/17 18:15 Urine Bilirubin NEGATIVE (NEGATIVE) 11/15/17 18:15 Urine Urobilinogen 0.2 E.U./dL (0.2 - 1.0) 11/15/17 18:15 Ur Leukocyte Esterase NEGATIVE (NEGATIVE) 11/15/17 18:15 Urine RBC 2-5 /hpf (0-5) H 11/15/17 18:15 Urine WBC 0-2 /hpf (0-5) 11/15/17 18:15 Ur Epithelial Cells FEW /lpf (FEW) 11/15/17 18:15 Urine Bacteria FEW /hpf (NONE SEEN) 11/15/17 18:15 Salicylates < 25.0 mg/L (30.0-100.0) L 11/15/17 17:40 Urine Opiates Screen NEGATIVE (NEGATIVE) 11/15/17 18:15 Urine Methadone Screen NEGATIVE (NEGATIVE) 11/15/17 18:15 Acetaminophen < 10.0 ug/mL (10.0-30.0) L 11/15/17 17:40 Ur Barbiturates Screen NEGATIVE (NEGATIVE) 11/15/17 18:15 Valproic Acid 46.8 ug/mL (50.0-100.0) L 11/18/17 06:52 Ur Tricyclics Screen NEGATIVE (NEGATIVE) 11/15/17 18:15 Ur Phencyclidine Scrn NEGATIVE (NEGATIVE) 11/15/17 18:15 Amphetamines Screen NEGATIVE (NEGATIVE) 11/15/17 18:15 U Methamphetamines Scrn NEGATIVE (NEGATIVE) 11/15/17 18:15 U Benzodiazepines Scrn NEGATIVE (NEGATIVE) 11/15/17 18:15 U Cocaine Metab Screen NEGATIVE (NEGATIVE) 11/15/17 18:15 U Cannabinoids Screen NEGATIVE (NEGATIVE) 11/15/17 18:15 Ethyl Alcohol < 10 mg/dL (0-10) 11/15/17 17:40 RPR NONREACTIVE (NONREACTIVE) 11/15/17 17:40 - Physical Exam Vitals and I&O: Vital Signs Temp 98.4 F 11/26/17 06:54 Pulse 70 11/26/17 06:54 Resp 20 11/26/17 06:54 BP 118/69 11/26/17 06:54 Pulse Ox 96 11/26/17 06:54 Intake & Output 11/25/17 11/26/17 11/26/17 18:59 06:59 18:59 Intake Total 120 Balance 120 Intake: Oral 120 Other: # Voids 3 2 # Bowel Movements 1 Stool Characteristics Soft Soft Formed Formed Active Medications: Current Medications Acetaminophen (Tylenol) 650 mg PO Q4HR PRN PRN Reason: Mild Pain / Temp above 100 Stop: 01/14/18 20:58 Last Admin: 11/26/17 11:31 Dose: 650 mg Al Hydrox/Mg Hydrox/Simethicone (Maalox) 30 ml PO Q4HR PRN PRN Reason: GI DISTRESS Stop: 01/14/18 20:55 Last Admin: 11/21/17 16:54 Dose: 30 ml Atorvastatin Calcium (Lipitor) 10 mg PO HS HARITHA; Protocol Stop: 01/14/18 20:59 Last Admin: 11/25/17 20:18 Dose: 10 mg Divalproex Sodium (Depakote Sprinkle) 500 mg PO HS HARITHA Stop: 01/14/18 22:59 Last Admin: 11/25/17 20:18 Dose: 500 mg Divalproex Sodium (Depakote Dr) 500 mg PO DAILY HARITHA Stop: 01/20/18 08:59 Last Admin: 11/26/17 08:32 Dose: 500 mg Lactobacillus Rhamnosus (Culturelle 15b) 1 each PO DAILY HARITHA Stop: 01/20/18 13:59 Last Admin: 11/26/17 08:32 Dose: 1 each Lorazepam (Ativan) 0.5 mg PO Q4HR PRN; Protocol PRN Reason: Anxiety Stop: 12/21/17 20:26 Last Admin: 11/26/17 11:31 Dose: 0.5 mg Magnesium Hydroxide (Milk Of Magnesia) 30 ml PO HS PRN PRN Reason: Constipation Miscellaneous (Probiotic Screen) 1 ea MC PRN PRN PRN Reason: PROTOCOL Stop: 01/20/18 11:59 Olanzapine (Zyprexa Zydis) 10 mg PO HS HARITHA; Protocol Stop: 01/14/18 20:59 Last Admin: 11/25/17 20:18 Dose: 10 mg Oxcarbazepine (Trileptal) 300 mg PO BID HARITHA; Protocol Stop: 01/15/18 08:59 Last Admin: 11/26/17 08:32 Dose: 300 mg Trimethoprim/Sulfamethoxazole (Bactrim Ds) 1 tab PO BID HARITHA Stop: 11/30/17 09:59 Last Admin: 11/26/17 08:32 Dose: 1 tab General: Alert, Other (Confused) HEENT: Atraumatic Neck: Supple Cardiovascular: Regular rate Lungs: Clear to auscultation Abdomen: Bowel sounds, Soft Extremities: Other (No edema) Neurological: Normal gait Psych/Mental Status: Other (Confused not oriented. ) Assessment/Plan - Assessment Assessment: COPD HLD peptic ulcer disease gastritis OA Osteoporosis CAD - Plan Plan: CPM will monitor Nutritional Asmnt/Malnutr-PDOC - Dietary Evaluation Malnutrition Findings (Please click <Entered> for more info): Nutritional Asmnt/Malnutrition Start: 11/18/17 10: 16 Text: Status: Complete Freq: Protocol: Document 11/18/17 10:16 GISSEL (Rec: 11/18/17 10:20 GISSEL LEI- [email or web address]) Nutritional Asmnt/Malnutrition Patient General Information Diagnosis psychosis Pertinent Medical Hx/Surgical Hx schizophrenia, dementia, hyperlipidemia Subjective Information Pt asleep at time of visit Current Diet Order/ Nutrition Support DAYAMI Pertinent Medications Maalox, lipitor, MOM Pertinent Labs 11/15: Na 138, K 4.1, Cl 105, CO2 23.9, BUN 19, Cr 1.1, Ca 9 .1, glucose 122 Nutritional Hx/Data Height 1.83 m Height (Calculated Centimeters) 182.9 Current Weight (lbs) 79.379 kg Weight (Calculated Kilograms) 79.4 Weight (Calculated Grams) 18493.7 Body Mass Index (BMI) 23.7 Weight Status Approriate GI Symptoms GI Symptoms None Last BM 11/17 Cultural/Ethnic/Anabaptist Belief unknown Usual diet at home Cardiac Skin Integrity/Comment: carol score 17, intact Estimated Nutritional Goals BEE in Kcals: Using Current wt Calories/Kcals/Kg 25-30kcals/kg Kcals Calculated 1974-2369kcals/day Protein: Using Current wt Protein g/k-1.2g/kg Protein Calculated 79-95g/day Fluid: ml 1974-2369ml/day (1ml/kcal) Nutritional Problem 1. Problem Problem No nutrition diagnosis at this time Intervention/Recommendation Comments Recommend continuing DAYAMI diet Expected Outcomes/Goals Expected Outcomes/Goals PO intake >75% of meals
--- NOTE | 2017-11-26 12:34 | Progress Notes ---
DATE: 11/26/2017 SUBJECTIVE: Staff was spoken to. The patient is interviewed. Mood is noted to be irritable. Affect is constricted. The patient's insight and judgment is noted to be still impaired. Impulse control is noted to be limited. Coping skills are still limited. The patient has been currently on 10 mg of olanzapine and 500 mg twice a day of Depakote. The patient continues to be paranoid and has been getting easily frustrated and hence it is decided to increase the dose of the olanzapine to 15 mg and encouraged the patient to verbalize the concerns rather than to act out. Please note that the patient is not ready to be discharged in view of his psychosis. JOB# [id number]
[2017-11-26] MEDS: Atorvastatin Calcium 10 MG TAB PO SCH (20:39)
[2017-11-26] MEDS ORDERED: OLANZapine 10 mg Oral Disintegrating Tab PO SCH (21:00)
--- NOTE | 2017-11-27 11:19 | Progress Notes ---
DATE: 11/27/2017 INTERNAL MEDICINE CONSULTATION FOLLOWUP SUBJECTIVE: The patient is a 62-year-old male seen at [facility]. PAST HISTORY: Includes COPD, hypertension, coronary artery disease, peptic ulcer disease, arthritis, osteoporosis and dementia. CHIEF COMPLAINT: No new symptoms. PHYSICAL EXAMINATION: VITAL SIGNS: Stable. LUNGS: Clear. Bilateral good air entry. No adventitious sounds. HEART: First and second sounds normal. No gallops. S1, S2 present. ABDOMEN: Soft. Bowel sounds present and good. EXTREMITIES: Show arthritis. NEUROLOGIC: The patient has no focal motor deficits. MEDICAL DIAGNOSES: Remain the same. PLAN: Continue current medical management. Psych consult reviewed. JOB# [id number]
[2017-11-27] MEDS: Lactobacillus Rhamnosus GG 15 Billion CFU CAP.SPRINK PO SCH (14:33)
[2017-11-27] MEDS: Sulfamethoxazole/TMP 800/160mg Tab PO SCH (14:33)
--- NOTE | 2017-11-27 15:42 | Progress Notes ---
DATE: 11/27/2017 SUBJECTIVE: Staff was spoken to. The patient is interviewed. Mood is noted to be less irritable. Affect is appropriate. The patient has paranoia, but denies any command hallucinations. Aggressive behavior and impulsivity is coming under control. No side effects to the medications are noted at this time. ASSESSMENT: The patient's psychosis is resolving. PLAN: To continue the patient with the supportive therapy, encouraged the patient to verbalize the concerns rather than to act out. JOB# [id number]
== END 2017-11-27 14:45 | DRG 885 ==
LOC: ER 17:32 → GERO 18:50
PROVIDERS: ADMIT Psychiatry & Neurology Psychiatry; ATTEND Psychiatry & Neurology Psychiatry
DX: F25.9 Schizoaffective disorder, unspecified (principal); F03.90 Unspecified dementia, unspecified severity, without behavioral disturbance, psychotic disturbance, mood disturbance, and anxiety; E78.5 Hyperlipidemia, unspecified; I10 Essential (primary) hypertension; F31.9 Bipolar disorder, unspecified; F29 Unspecified psychosis not due to a substance or known physiological condition; J44.9 Chronic obstructive pulmonary disease, unspecified; K27.9 Peptic ulcer, site unspecified, unspecified as acute or chronic, without hemorrhage or perforation; K29.70 Gastritis, unspecified, without bleeding; M19.90 Unspecified osteoarthritis, unspecified site; M81.0 Age-related osteoporosis without current pathological fracture; I25.10 Atherosclerotic heart disease of native coronary artery without angina pectoris; Z82.49 Family history of ischemic heart disease and other diseases of the circulatory system
CPT/HCPCS: 36415-UA; 80053-TC; 80061-TC; 80164-TC; 80307; 80320-TC; 80329-TC; 81001-TC; 83036-90; 84443-TC; 84484-TC; 85025-TC; 86592-TC; 93005; J1200; J1630; J2060; Z7610